=== PATIENT | male | born 1955 | race Caucasian/White ===

== ENCOUNTER 2022-03-20 03:42 | Day surgery (SDC) | payer BC, SELFPAY ==
[2022-03-12 08:26] VITALS: BMI 33.5
--- NOTE | 2022-03-12 08:38 | PC.NURSE ---
Report to the Outpatient Waiting Room, entrance under the green pavilion located off [facility], at time 1200 on date 03/20/22. OR Time: 1400. Time changes happen often and if your time is changed the preop area will call you the afternoon before. - You and your visitor will be asked to self-screen and do not enter if you have any COVID symptoms. - Only one visitor and NO children visitors are allowed at this time. - The patient visitor is requested to leave or wait in car when not with patient due to restrictions. - A mask is required within the hospital. Patients may have clear liquids (water, carbonated beverages, clear teas, apple juice) until 3 hours prior to surgery with a maximum of 20 ounces. - No food from midnight until time of surgery Take the following medications with a SIP of water the morning of surgery: PAIN PILL IF NEEDED Medications to discontinue per physician: CELEBREX Date to take last dose: PER DR. [place] Please no make-up, nail yoruba, hairspray, perfume, deodorant, or body powder the day of surgery. No jewelry (including any body piercings) or valuables the day of surgery, leave them at home. Please take a shower or bath the night before, or the morning of, surgery with an antibacterial soap. Wear comfortable, loose fitting clothing. - Jewelry must be removed prior to entering the operating room. Rings and piercings that are not removed may be cut off. - The hospital will not accept responsibility for valuables. - Please leave all valuables, including medications, at home the day of surgery. If you are going home after surgery, a licensed livery car driver must drive you home. - NO public transportation without another adult. - We recommend that an adult stay with you for 24 hours following discharge. - We also recommend that you do not drive, make important decision, drink alcoholic beverages, or take any drugs that were not prescribed by your health care provider for at least 24 hours after your discharge time. Follow any additional instructions given to you from your surgeon. If you or anyone in your household have experienced Covid symptoms in the past week, please notify your surgeon or the nurse liaison at the phone number below for possible testing. Telephone instructions given to PT AND SPOUSE and asked if any additional questions and then verbalized understanding. Patient advised to call surgeon office or pre surgery nurse liaison [phone] if any additional questions.
[2022-03-20] VITALS (9 sets, daily range): BP systolic 126–154; BP diastolic 52–93; PULSE 57–80; RESP 10–18; TEMP 35.8–36.3; O2SAT 92–99
--- NOTE | ~2022-03-20 | XR_ITS ---
EXAMINATION: XR fluoroscopy no charge DATE: 03/20/2022 15:13 INDICATION: L3-L5 laminectomy TECHNIQUE: Single lateral fluoroscopic image of the lower lumbar spine was obtained during procedure performed by Dr. Rivas. Radiologist was not present for the imaging or procedure. The amount of fl uoroscopy time used during this procedure was 0.1 minutes. COMPARISON: None. FINDINGS: Thin serpiginous wire-like densities likely representing lap sponge markers project over a metallic p robe in the soft tissue retractor position posterior to the lower lumbar spine. Moderate lower lumbar spondylosis with moderate disc height loss at L3-L4. IMPRESSION: 1. Fluoroscopy utilized during surgical procedure at the lower lumbar spine. See procedure note for f urther detail. Reviewed, dictated and finalized at location B. IMPRESSION: 1. Fluoroscopy utilized during surgical procedure at the lower lumbar spine. Se e procedure note for further detail.
[2022-03-20] MEDS: LACTATED RINGERS 1,000 ML 30 ML IV CONT ×2 (11:03→15:16)
--- NOTE | 2022-03-20 12:33 | WPDANESEPPF ---
Anes - Initial Pre Proc Eval Procedure: Operation Date: 03/20/22 12:30 Proposed Procedures p L3-5 Laminectomy - Lauro Rivas MD Date/Time: 03/20/22 12:33 Surgeon: Lauro Rivas MD Pre Op Diagnosis: L3-5 stenosis with claudication Patient Data Age: 67 Gender: M Height: 1.83 m Weight: 115.5 kg Last Vital Signs Temp 36.3 C L 03/20/22 10:23 Pulse 58 L 03/20/22 10:23 Resp 18 03/20/22 10:23 BP 138/52 L 03/20/22 10:23 Pulse Ox 96 03/20/22 10:23 O2 Del Method Room Air 03/20/22 10:23 Allergies Allergy/AdvReac Type Severity Reaction Status Date / Time No Known Allergies Allergy Unverified 03/12/22 08:24 Home Medications Medication Instructions Recorded Confirmed Type celecoxib 200 mg capsule (Celebrex) 200 mg PO DAILY 12/30/21 03/12/22 History olmesartan 20 mg tablet (Benicar) 20 mg PO DAILY 12/30/21 03/12/22 History rosuvastatin 10 mg tablet (Crestor) 10 mg PO DAILY 12/30/21 03/12/22 History tadalafil 5 mg tablet 5 mg PO DAILY 12/30/21 03/12/22 History hydrocodone 5 mg-acetaminophen 325 1 tablet PO Q4H PRN pain #30 tabs 02/17/22 03/12/22 Rx mg tablet Laboratory Tests 03/20/22 10:57 Blood Type O Positive Antibody Screen Negative Patient hx anesthesia problems: none Family hx anesthesia problems: none Results Review: All pre-operative results and documents have been reviewed as part of the pre-operative evaluation. [facility] Past Medical History Medical History Acute arthritis Anxiety Chronic pain syndrome Hypercholesteremia Hypertension Surgical History Surgical History H/O vasectomy Hx of tonsillectomy Family History Family History Other Breast cancer Diabetes mellitus Heart disease Hypertension Social History Social History Smoking status: Never smoker Alcohol intake: current Alcohol use details: 8/MONTH Substance use: never Substance use type: does not use Living arrangements: with family Spiritual care concerns: No Anes - Eval Final PreProcedure Day of Procedure 03/20/22 12:33 Patient weight: obese Heart: regular rate and rhythm Lungs: clear to auscultation Airway: Mallampati scale class II Neurological: alert and oriented Last oral intake: >/= 8 hours ASA classification: III Emergent: no Anesthetic plan: proceed Anesthesia type and monitoring: general ETT and standard monitoring Results Review: All pre-operative results and documents have been reviewed as part of the pre-operative evaluation. Informed Consent: The patient's anesthetic plan and its attendant risks and benefits were discussed with the patient/family/POA. Questions were solicited and answers provided to the satisfaction of the patient/family/POA.
--- NOTE | 2022-03-20 12:39 | PM.IMHP ---
H&P: HPI History of Present Illness Date/Time: 03/20/22 12:39 Chief Complaint: Neurogenic claudication Narrative: Gabriel is a 67-year-old gentleman with neurogenic claudication secondary to spinal stenosis who presents for laminectomy at L3-5. Nothing has changed since we last saw him. He is not having any bowel or bladder difficulty or other constitutional problems. He does not have specific muscle group weakness or dermatomal numbness. Review of Systems Review of Systems: Patient denies shortness of breath, cough, fever, chills, nausea, vomiting, weight loss, weight gain, chest pain, dysuria. He has back and leg pain and claudication as above. His review of systems is otherwise negative on 12 systems except as noted elsewhere. [facility] Past Medical History Medical History Acute arthritis Anxiety Chronic pain syndrome Hypercholesteremia Hypertension Surgical History Surgical History H/O vasectomy Hx of tonsillectomy Family History Family History Other Breast cancer Diabetes mellitus Heart disease Hypertension Social History Social History Smoking status: Never smoker Alcohol intake: current Alcohol use details: 8/MONTH Substance use: never Substance use type: does not use Living arrangements: with family Spiritual care concerns: No Meds Home Medications and Allergies Home Medications Medication Instructions Recorded Confirmed Type celecoxib 200 mg capsule (Celebrex) 200 mg PO DAILY 12/30/21 03/12/22 History olmesartan 20 mg tablet (Benicar) 20 mg PO DAILY 12/30/21 03/12/22 History rosuvastatin 10 mg tablet (Crestor) 10 mg PO DAILY 12/30/21 03/12/22 History tadalafil 5 mg tablet 5 mg PO DAILY 12/30/21 03/12/22 History hydrocodone 5 mg-acetaminophen 325 1 tablet PO Q4H PRN pain #30 tabs 02/17/22 03/12/22 Rx mg tablet Allergies Allergy/AdvReac Type Severity Reaction Status Date / Time No Known Allergies Allergy Unverified 03/12/22 08:24 Vital Signs Vital Signs - 24 hr 03/20/22 10:23 Temperature 97.3 F L Pulse Rate 58 L Respiratory Rate 18 Blood Pressure 138/52 L Pulse Oximetry 96 Oxygen Delivery Room Air Exam Neuro: Other: The patient is a normally developed, normal appearing male supine on the hospital bed in no acute distress. He is awake, alert, oriented, with good fund of knowledge, recall events and fluent speech. His face is symmetrical, his pupils are equal reactive to light and his extraocular movements are intact. Strength is 5/5 in all muscle groups of the bilateral lower extremities. Sensation is intact to light touch throughout the lower extremities. Assessment and Plan Assessment and plan (1) Lumbar spondylosis: Code(s): M47.816 - Spondylosis without myelopathy or radiculopathy, lumbar region Status: Acute (2) Lumbar stenosis: Code(s): M48.061 - Spinal stenosis, lumbar region without neurogenic claudication Status: Acute Plan Gabriel is a 67-year-old gentleman who presents for lumbar laminectomy for spinal stenosis at L3-5. I described to him that operation, its risks, potential benefits, the operative and postoperative course in detail and answered all his questions personally. Indicates understanding and elects proceed with that operation.
--- NOTE | 2022-03-20 12:41 | WPDHPUPDATE1 ---
History and Physical Update Update Date/Time: 03/20/22 12:41 History and Physical has been reviewed, including an updated exam of the patient. There are NO changes in the patient's condition. Risks, benefits, and alternatives have been discussed and questions answered. Patient agrees to proceed with procedure.
[2022-03-20] MEDS: ceFAZolin 2 GM/D5W 50 ML 2 GM/50 ML BAG IVPB (13:19)
--- NOTE | 2022-03-20 13:22 | PCCCNOTE ---
Lat entry: Requested by preop to meet with patient regarding advance directive. Meet with patient and his spouse Mari in room 10 preop. Patient wanting to complete advance directive today. Explained how to complete advance directive, also advised that he will be a full code all measures during surgery which patient understands. Patient completed paperwork, all signatures witnessed by myself for healthcare power or associate attorney and this hiv/aids care nurse and co-worker Marychuy Mccarthy for living will. Copy placed in chart and additional copy and hard copy given to patient.
[2022-03-20] MEDS: BUPIVACAINE/EPINEPHRINE 0.25% 50 ML VIAL INFILTRATE (14:07)
--- NOTE | 2022-03-20 15:01 | W.PM.PROC2 ---
Procedure Note - Detailed Date of Procedure 03/20/22 Pre-op Diagnosis L3-5 stenosis with claudication Post-op Diagnosis Same Procedure Performed L3-5 laminectomy Surgeon Lauro Rivas MD [employer] [facility] Anesthesia General Indications Gabriel is a 67-year-old gentleman with neurogenic claudication secondary to spinal stenosis who presents for laminectomy at L3-5. Description of Procedure The patient was brought to the operating room in the supine position, was sedated, intubated and placed under general anesthesia in routine fashion. He was then turned into the prone position on a Tyo frame. The of operation on his back was examined, marked for incision, prepped and draped in routine sterile fashion. Incision was marked over the L3 through 5 spinous processes in the midline. This area was injected with 0.5% lidocaine with 1 to [id number] epinephrine. Intravenous antibiotics given prior to incision. Incision was made with a 10 blade scalpel down to the lumbodorsal fascia. A subperiosteal dissection of the muscle soft tissue within spinous process lamina at L3-5 was performed with a subperiosteal elevator and Bovie cautery. A verifying x-rays obtained to verify the level of operation. The L3 and L4 spinous processes were removed with a Luz rongeur. Kerrison punches, curved curettes and a Leksell rongeur were used to remove lamina in the midline into the soft contents of the canal were encountered. Midas Diomedes drill with an a.m. 8 bit was used to widen the laminectomy. A curved curette was used to find a plane with during Kerrison punches were used to remove additional bone and ligament in the lateral recess 1st on the right side than on the left extending down until the L5-S1 foramen could be felt in the pedicles encountered. A dental instrument was placed in the lateral epidural space to confirm lack of compression. At the L4-5 level a Midas Diomedes drill was used to perform a limited bony foraminotomy on the right. Kerrison punches and curved curettes expanded the laminectomy until the nerve root was felt to be free. The wound was then copiously irrigated with bacitracin irrigation all bleeding stopped with bipolar and Bovie cautery and Gelfoam thrombin powder. Wound was then closed in layered fashion with 2-0 Vicryl interrupted sutures in the lumbodorsal fascia and Stan's layer. 3-0 Vicryl buried interrupted sutures were placed in the dermis and the skin was closed with running 4-0 Monocryl subcuticular stitch and dressed with Dermabond and a Telfa and Tegaderm dressing. A medium Hemovac drain was placed in a subfascial position buried out to the inferior right of the incision before closure. The patient was then allowed to wake up in the operating room was taken to the recovery room in stable condition. There were no immediate complications of this operation. All counts were reported correct in the case. Blood loss was 350 cc. The patient was neurologically at his baseline postoperatively.
[2022-03-20] MEDS: fentaNYL CITRATE INJ (*CRX) 100 MCG/2 ML VIAL 25 MCG IV PUSH ×6 (16:04→16:42)
--- NOTE | 2022-03-20 17:28 | ADMGEN ---
This patient, Gabriel Rm, was admitted to Medical Room 251-01. Patient/family oriented to hospital policies and general routines including ID bracelet, bed and alarms, visiting hours, pain management, procedures, bathroom and other care routines, personal items, smoking policy, room service/diet, and visiting hours. Information on how to activate the Rapid Response Team has been discussed. Patient/Family are encouraged to report perceived risks to care and to ask questions if they do not understand what they are told or what they should do.
[2022-03-20] MEDS: HYDROcodone/acetaminophen (*CRX) 10-325 MG TABLET 1 TAB PO ×2 (17:49→21:05)
[2022-03-20] MEDS: KCL 20 MEQ/D5/0.45% SOD CHL 1,000 ML 100 ML IV CONT (17:50)
[2022-03-20] MEDS: CYCLOBENZAPRINE HCL 10 MG TABLET PO (21:05)
[2022-03-20] MEDS: DOCUSATE SODIUM 100 MG CAPSULE PO (21:05)
[2022-03-21 00:35] VITALS: BP 126/51; PULSE 78; RESP 16; TEMP 36.2; O2SAT 93
[2022-03-21] MEDS: HYDROcodone/acetaminophen (*CRX) 10-325 MG TABLET 1 TAB PO ×4 (01:07→13:27)
[2022-03-21 06:23] VITALS: BP 113/51; PULSE 75; RESP 16; TEMP 36.4; O2SAT 94
[2022-03-21] MEDS: KCL 20 MEQ/D5/0.45% SOD CHL 1,000 ML 30 ML IV CONT (06:29)
[2022-03-21] MEDS: DOCUSATE SODIUM 100 MG CAPSULE PO (08:30)
[2022-03-21 10:06] VITALS: BP 112/53; PULSE 81; RESP 16; TEMP 36.7; O2SAT 95
--- NOTE | 2022-03-21 13:54 | WPDNEUROSGPN ---
Progress Note: A&P Assessment and Plan (1) Lumbar stenosis: Code(s): M48.061 - Spinal stenosis, lumbar region without neurogenic claudication Status: Acute Assessment and Plan: Glenny is doing very well s/p lumbar decompression Drain D/c'ed Voiding independently Anticipate d/c later today F/U in office with Dr. Rivas Subjective Date/time seen: 03/21/22 13:54 Patient notes resolution of lower extremity pain Ambulating well in halls No complaints Exam Narrative: Awake, alert oriented x 3 speech cF MERE EOMI Face= TML MAEW with good strength Objective Data Vital Signs Vital Signs: Vital Signs - 24 hr 03/20/22 15:20 03/20/22 15:35 03/20/22 15:50 Temperature 96.5 F L Pulse Rate 62 58 L 57 L Respiratory Rate 12 16 10 L Blood Pressure 133/75 154/86 H 150/93 H Pulse Oximetry 99 98 98 Oxygen Delivery Simple Face Mask Simple Face Mask Room Air Oxygen Flow Rate 8 8 03/20/22 16:05 03/20/22 16:20 03/20/22 16:35 Temperature Pulse Rate 57 L 65 57 L Respiratory Rate 12 18 13 Blood Pressure 134/71 141/67 H 135/68 Pulse Oximetry 97 96 92 Oxygen Delivery Room Air Room Air Room Air Oxygen Flow Rate 03/20/22 16:50 03/20/22 18:12 03/20/22 20:52 Temperature 97.1 F L Pulse Rate 57 L 80 Respiratory Rate 12 18 Blood Pressure 126/69 135/55 L Pulse Oximetry 95 97 Oxygen Delivery Room Air Room Air Oxygen Flow Rate 03/20/22 20:00 03/21/22 00:35 03/21/22 06:23 Temperature 97.1 F L 97.5 F L Pulse Rate 78 75 Respiratory Rate 16 16 Blood Pressure 126/51 L 113/51 L Pulse Oximetry 93 94 Oxygen Delivery Room Air Oxygen Flow Rate 03/21/22 09:15 03/21/22 09:35 03/21/22 10:06 Temperature 98.1 F Pulse Rate 81 Respiratory Rate 16 Blood Pressure 112/53 L Pulse Oximetry 95 Oxygen Delivery Room Air Room Air Oxygen Flow Rate Intake/Output Intake/Output: Intake & Output 03/18/22 03/19/22 03/20/22 03/21/22 23:59 23:59 23:59 23:59 Intake Total 1900 1512 Output Total 50 100 Balance 1850 1412 Meds/Results Medications: Active Medications Generic Name Dose Route Start Last Admin Trade Name Freq PRN Reason Stop Dose Admin Hydrocodone Bitart/Acetaminophen 1 tab 03/20/22 15:05 Hydrocodone/Acetaminophen (*Crx) 5-325 Mg Tablet PO Q4H PRN Mild Pain (1-3) Hydrocodone Bitart/Acetaminophen 1 tab 03/20/22 15:05 03/21/22 13:27 Hydrocodone/Acetaminophen (*Crx) 10-325 Mg Tablet PO 1 tab Q4H PRN Administration Moderate Pain (4-6) Al Hydrox/Mg Hydrox/Simethicone 20 ml 03/20/22 15:05 Mag Hydrox/Al Hydrox/Simeth 30 Ml Udc PO Q4H PRN Indigestion/Heartburn Bisacodyl 10 mg 03/20/22 15:05 Bisacodyl 10 Mg Suppository RECTAL DAILY PRN Constipation Cyclobenzaprine HCl 10 mg 03/20/22 15:05 03/20/22 21:05 Cyclobenzaprine Hcl 10 Mg Tablet PO 10 mg TID PRN Administration Muscle Spasms Docusate Sodium 100 mg 03/20/22 21:00 03/21/22 08:30 Docusate Sodium 100 Mg Capsule PO 100 mg Q12HR MARY Administration Cefazolin Sodium 1 gm in 50 mls @ 100 mls/hr 03/20/22 22:00 03/21/22 13:27 Ancef 1 Gm/D5w 50 Ml Pm IVPB 100 mls/hr Q8HR MARY Administration Potassium Chloride/Dextrose/Sod Cl 1,000 mls @ 30 mls/hr 03/20/22 15:05 03/21/22 06:29 Kcl 20 Meq/D5/0.45% Sod Chl IV CONT 30 mls/hr .Q24H MARY Administration Morphine Sulfate 2 mg 03/20/22 15:05 Morphine Sulfate (*Crx) 2 Mg/Ml Inj IV PUSH Q2H PRN Pain Rated 7-10 Ondansetron HCl 4 mg 03/20/22 15:05 Ondansetron Inj 4 Mg/2 Ml Vial IV PUSH Q8H PRN Nausea And Vomiting Senna/Docusate Sodium 1 tab 03/20/22 15:05 Senna/Docusate Sodium Tablet PO HS PRN Constipation Radiology Results: ITS Impressions Fluoroscopy 03/20/22 15:32 IMPRESSION: 1. Fluoroscopy utilized during surgical procedure at the lower lumbar spine. See procedure note for further detail
--- NOTE | 2022-04-28 09:46 | P.DS_ITS ---
DS: Admitting Diagnosis Discharge Date 03/21/22 Admitting Diagnosis L3-5 stenosis DS: Discharge Diagnosis Discharge Diagnosis Plan Gabriel is a 67-year-old gentleman with neurogenic claudication secondary to spinal stenosis at L3-5 presents for laminectomy DS: Summary Hospital Course Hospital Course: Gabriel was taken to the operating room on 03/20/2022 with the aforementioned operation was performed without complication. His drain was removed on postoperative day 1. Physical and occupational therapy were involved in his care. Later on postoperative day 1 he was eating, ambulating and his pain was under control with by mouth pain medicine. His wounds remained clean, dry and intact. He was afebrile stable vital signs. He was therefore allowed to be discharged L. Time Spent with Patient Time attestation: Total time spent providing and/or coordinating discharge services: Discharge Plan Discharge Patient Disposition: Home, Self-Care Stand Alone Forms: General Discharge Instructions Follow-up/Referrals: Magali Morales MD [Physician] - Lauro Shipman MD [Physician] - (Folow up with Dr. Shipman - call office t o schedule) Discharge Medications: Continued olmesartan [Benicar] 20 mg tablet 20 mg PO DAILY celecoxib [Celebrex] 200 mg capsule 200 mg PO DAILY rosuvastatin [Crestor] 10 mg tablet 10 mg PO DAILY tadalafil 5 mg tablet 5 mg PO DAILY No Action hydrocodone-acetaminophen 5-325 mg tablet 1 tablet PO Q4H PRN (Reason: pain) Qty: 30 0RF
== END 2022-03-21 15:00 | disposition home or self-care (01) ==
LOC: ANHSURGERY 10:08 → ANH2MED 17:10
PROVIDERS: PCP Internal Medicine; Visit Provider Neurological Surgery
PROC: (CPT 63005; principal; 2022-03-20 12:30)
DX: M48.062 Spinal stenosis, lumbar region with neurogenic claudication (principal); M47.816 Spondylosis without myelopathy or radiculopathy, lumbar region; F41.9 Anxiety disorder, unspecified; E78.00 Pure hypercholesterolemia, unspecified; I10 Essential (primary) hypertension; M19.90 Unspecified osteoarthritis, unspecified site; E66.9 Obesity, unspecified; Z68.34 Body mass index [BMI] 34.0-34.9, adult; G89.4 Chronic pain syndrome
CPT/HCPCS: 63047; 63048; 36415; 86850; 86900; 86901; 97161; 97165; 99199; A9270; J0131; J0330; J0690; J1100; J1170; J2250; J2370; J2405; J2704; J3010; J3480; J7120

== ENCOUNTER 2025-02-16 12:03 | Outpatient (CLI) | payer MEDICARE, SELFPAY ==
--- NOTE | 2025-02-16 13:02 | ECG_ITS ---
Test Date: 2025-02-16 13:20:14 Measurements Intervals Varney Rate: 54 P: 29 UT: 215 QRS: -49 QRSD: 159 T: 54 QT: 474 QTc: 450 Interpretive Statements SINUS BRADYCARDIA WITH FIRST DEGREE AV BLOCK MARKED LEFT AXIS DEVIATION [QRS AXIS < -30] LEFT BUNDLE BRANCH BLOCK [120+ ms QRS DURATION, 80+ ms Q/S IN V1/V2, 85+ ms R IN I/aVL/V5/V6] No previous ECG available for comparison Electronically Signed On 02-16-2025 13:29:21 CDT by Nadeem Mar M.D.
--- OUTSIDE RECORDS SUMMARY | 2025-02-16 13:58 | XMS_ITS | Clinical Summary ---
Author Organization [facility] Address [address] [place] [address] Phone Care Team Providers Care Manager Brand Name Role Phone Richard Turner MD Primary Care Provider [phone] César Mackey MD Unavailable [phone] Afshin GONZALEZ MD, Raj Whatley Unavailable [phone] Margarita Smallwood MD Unavailable [phone] Allergies No known active allergies Medications olmesartan (BENICAR) 20 mg tablet Take 1 tablet (20 mg total) by mouth daily Active celecoxib (CeleBREX) 100 mg capsule Take 1 capsule (100 mg total) by mouth 2 (two) times a day Active tadalafiL (CIALIS) 5 mg tablet Take 1 tablet (5 mg total) by mouth daily Active rosuvastatin (CRESTOR) 5 mg tablet Take 1 tablet (5 mg total) by mouth daily Active aspirin 81 mg enteric coated tablet Take 1 tablet (81 mg total) by mouth daily 10/10/2022 Active nitroglycerin (NITROSTAT) 0.[address] 1 tablet (0.4 mg total) under the tongue every 5 (five) minutes as needed 10/27/2022 Active pilocarpine (SALAGEN) 5 mg tabletIndicatio ns:Xerostomia Take 1 tablet (5 mg total) by mouth 3 (three) times a day 90 tablet 5 08/30/2024 Active Active Problems Problem Noted Date Diagnosed Date Acute recurrent maxillary sinusitis 08/30/2024 Pharyngoesophageal dysphagia 08/11/2023 Wheezing 11/13/2022 Assessment & Plan (01/12/2023 1:46 PM CDT): The patient states that his breathing is back to normal after recovering from bronchitis. The patient states he is not used his Breztri or albuterol in a long time. Assessment & Plan (11/13/2022 10:34 AM CDT): The patient presents with a 2 month history of intermittent wheezing associated with shortness of breath, cough which has been productive at times of yellow/green phlegm. I will give him a Z-Jason, check a chest x-ray and full PFTs and he will follow-up with me in 1 month. Did recommend that he continue with the breztri and albuterol for now. 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 Immunizations Immunization Administration Dates Next Due Influenza, Quadrivalent, Spl it, Preservative Free, Intramuscular 03/14/2019 Moderna SARS-CoV-2 Monovalent Vaccination (12+ Y RS) 08/16/2020,07/19/2020 ZOSTER Recombinant 01/11/2019,10/25/2018 Surgical History Surgery Date Site/Laterality Comments ADENOIDECTOMY TONSILLECTOMY BIOPSY 03/26/2017 Left excision left tonsil and left FNA neck mass REPLACEMENT TOTAL KNEE Right CERVICAL LAMINECTOMY 03/20/2022 Medical History Medical History Date Comments Neck mass Hypertension Cancer (HCC) Tonsil Kidney stone Family History Medical History Relation Name Comments Cancer Brother Diabetes Brother Cancer Father Cancer Mother Hearing loss Other Relation Name Status Comments Brother Father Mother Other Social History Tobacco Use Types Packs/Day Years Used Date Smoking Tobacco: Never Smokeless Tobacco: Never Tobacco Cessation:Counseling Given: Not Answered Alcohol Use Standard Drinks/Week Comments Yes 0 (1 standard drink = 0.6 oz pur e alcohol) AUDIT-C Answer Date Recorded Q1: How often do you have a drink containing alc ohol? 2-3 times a week 11/13/2022 Q2: How many drinks containi ng alcohol do you have on a typical day when you are drinking? 1 or 2 11/13/2022 Q3: How often do you have si x or more drinks on one occasion? 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 Not on file Not on file Obstetrics History Last Filed Vital Signs Vital Sign Reading Time Taken Comments Blood Pressure 124/60 01/12/2023 1:15 PM CDT Pulse 57 01/12/2023 1:15 PM CDT Temperature 36.8 C (98.2 F) 08/11/2023 12:01 PM ACDS BLOCK 1 OPERATOR Respiratory Rate 18 08/30/2024 10:27 AM CDT Oxygen Saturation 97% 01/12/2023 1:15 PM CDT Inhaled Oxygen Concentration - - Weight 107 kg (236 lb) 08/30/2024 10:27 AM CDT Height 182.9 cm (6') 08/30/2024 10:27 AM CDT Body Mass Index 32.01 08/30/2024 10:27 AM CDT Plan of Treatment Health Maintenance Due Date Last Done Comments Colon Cancer Screening-Colonoscopy 1957 Depression Screening 1957 Fall Risk Assessment 1957 Hepatitis C Screening 1957 Hepatitis B Screening 1975 Prostate Cancer Screening-PSA 07/05/2014 07/05/2012 Well Visit 65+ 2022 Covid-19 Vaccine (6 - 2024-2 6 season) 2025 02/28/2022, 10/15/2021, 10/15/2021, Additional history exists Influenza Vaccine (#1) 2025 , 03/09/2023, 02/28/2022, Additional history exists DTaP/Tdap/Td Vaccine (2 - Td or Tdap) 12/26/2030 12/26/2020 Zoster Vaccine Completed 01/11/2019, 10/07, 09/23/2018 Pneumococcal vaccine 65+ Completed 02/29/2024, 11/2023 Procedures Procedure Name Priority Date/Time Associated Diagnosis Comments PSA SCREEN Routine 07/05/2012 8:50 AM ACDS BLOCK 1 OPERATOR from Last 3 Months or Most Recently Relevant to Health Maintenance Results * PSA screen (07/05/2012 8:50 AM ACDS BLOCK 1 OPERATOR) PSA Screen 1.5 0.0 - 3.9 ng/mL 07/05/2012 1:30 PM ACDS BLOCK [address] [facility] HISTORICAL RESULTS Comment: Method: ECLIA Values obtained by different assay methods cannot be used interchangeably. Use sequential testing to confirm baseline if assay method changed during patient monitoring. 07/05/2012 8:50 AM ACDS BLOCK 1 OPERATOR 07/05/2012 12:39 PM ACDS BLOCK 1 OPERATOR Alex You MD LAB BLOOD ORDERABLES Final Result Performing Organization Address City/State/[facility] [[email or web address]] Co de Phone Number [facility] HISTORICAL RESULTS from Last 3 Months or Most Recently Relevant to Health Maintenance Insurance [facility] MEDICARE ADVANTAGE [facility] MEDICARE ADVANTAGE AET MEDICARE GOLD Care Teams Manager Brand Relationship Specialty Start Date End Date Richard Turner MD PCP - General 07/29/17 César Mackey MD Medical Oncologist/Platform Stapler Hematology and Oncology 01/19/18 Raj Pepe II, MD Surgeon Otolaryngology 01/21/18 Margarita Smallwood MD Radiation Oncologist Radiation Oncology 01/21/18
--- OUTSIDE RECORDS SUMMARY | 2025-02-16 13:58 | XMS_ITS | Patient Health Record ---
Author Organization [facility] Address [address] [place] [address] Care Team Providers Care Lidar Analyst Name Role Phone Anil Smith Primary Care Provider [phone] Reason For Referral No Information Immunizations Vaccine Route Administration Date Status Comme nts COVID-19 Moderna 1ST IM Intramuscular 07/19/2020 Administered EUA date 0. Screening reviewed and consent signed. Patient tolerated well. COVID-19 Moderna 2nd IM Intramuscular 08/16/2020 Administered EUA date 0. Screening reviewed and consent signed. Patient tolerated well. Plan Of Treatment No Information Insurance Providers Payer Name Payer Address Payer Phone Subscriber Number Group Number Insured Name Patient Relationship to Insured Coverage Start Date Coverage End Date [facility] [address] [place] [address] [phone] [id number] Gabriel Rm Self - patient is the insured 1
[2025-02-16 14:22] LABS: Hematocrit 44.5 % (42.0-52.0); Hemoglobin 14.1 g/dL (14.0-18.0); Mean Corpuscular HGB Conc 31.7 g/dl (32-36); Mean Corpuscular Hemoglobin 31.4 pg (26-34); Mean Corpuscular Volume 99.1 fl (80-100); Platelet Count Result 177 k/mm3 (150-375); Red Blood Count 4.49 M/mm3 (4.6-6.20); White Blood Count 6.4 K/mm3 (4.5-10.0)
[2025-02-16 14:24] LABS: Add Urine Microscopic? NO; Appearance Urine Clear (Clear); Glucose Urine UA Negative (Negative); Leukocyte Esterase Ur Negative LEU/UL (Negative); Nitrate Urine Negative (Negative); Specific Grav Ur 1.024 (1.001-1.035)
[2025-02-16 14:32] LABS: Anion Gap 8 mmol/L (4-12); Blood Urea Nitrogen 19 mg/dL (9-20); Calcium 9.4 mg/dL (8.4-10.2); Carbon Dioxide 27 mmol/L (22-30); Chloride 104 mmol/L (98-107); Estimated Glomerular Filt Rate > 60; Glucose 95 mg/dL (65-110); Potassium 4.6 mmol/L (3.4-5.0); Sodium 139 mmol/L (137-145)
[2025-02-16 14:41] LABS: INR 1.0; Prothrombin Time 13.1 Seconds (11.1-14.7)
[2025-02-16 14:42] LABS: Partial Thromboplastin Time 31.3 Seconds (22.3-36.8)
== END 2025-02-16 12:04 | disposition home or self-care (01) ==
LOC: ANHSURGERY 12:07
PROVIDERS: PCP Internal Medicine; Visit Provider Neurological Surgery
DX: Z01.818 Encounter for other preprocedural examination (principal); M51.26 Other intervertebral disc displacement, lumbar region; I44.7 Left bundle-branch block, unspecified; R94.31 Abnormal electrocardiogram [ECG] [EKG]
CPT/HCPCS: 36415; 80048; 81003; 85027; 85610; 85730; 93005

== ENCOUNTER 2025-03-07 01:42 | Day surgery (SDC) | payer MEDICARE, SELFPAY ==
--- OUTSIDE RECORDS SUMMARY | 2025-01-30 19:00 | XMS_ITS | Continuity of Care Document ---
Author Organization [employer] [place] Address [address] [place] [address] Phone Care Team Providers Care Clinical Data Programmer Name Role Phone Richard Turner MD Unavailable Unavailable Allergies, Adverse Reactions, Alerts Substance Reaction Status Criticality No Known Allergies Active No Inform ation Medications Medication Instructions Dosage Effective Dates (start - stop) Status Comments TRAZODONE 50 MG TABLET TAKE 1 TABLET BY MOUTH EVERY DAY AT NIGHT - Active OLMESARTAN TAB 20MG TAKE 1 TABLET DAILY - Active Cialis 5 mg tablet take 1 tablet by oral route every day 5 MG - Active Crestor 10 mg tablet take 1 tablet by oral route every day 10 MG - Active Celebrex 200 mg capsule TAKE 1 CAPSULE BY MOUTH TWICE DAILY NEEDED - Active Cialis 20 mg tablet TAKE ONE TABLET BY MOUTH APPROXIMATELY ONE HOUR BEFORE SEXUAL ACTIVITY. DO NOT USE MORE THAN ONE DOSE DAILY - Active tramadol 50 mg tablet take 1 tablet by oral route every 6 hours as needed 50 MG - Active VESICARE LS (unknown strength) take 5 milliliter by oral route every day Not Available - Active Ozempic 1 mg/dose (4 mg/3 mL) subcutaneous pen injector inject (1MG) by subcutaneous route every week on the same day of each week 1 MG - Active Procedures Procedure Date MED LIST DOCD IN RD OFFICE [id number] SYST BP LT 130 MM HG DIAST BP < 80 MM HG ROUTINE VENIPUNCTURE [place] BASIC METABOLIC PANEL(BMP) CBC, INC PLATELETS AND DIFFERENTIAL MED LIST DOCD IN RCRD OFFICE QBPBP-ALL-KEYKENKE SYST BP LT 130 MM HG DIAST BP < 80 MM HG OFFICE NKUYX-TKG-IBPPZZTV SYST BP LT 130 MM HG DIAST BP < 80 MM HG PNEUMOVAX ADM MEDICARE Pneumococcal Conjugate Vaccine (PCV20) A OFFICE ROHZI-JPV-LOCUSERE SYST BP >= 140 MM HG6 IT DIAST BP < 80 MM HG COMPREHEN METABOLIC PANEL CMP LIPID PANEL PSA, TOTAL, SCREENING MEDICARE ONLY OFFICE CYNZC-MDZ-EDQHYTCL ROUTINE VENIPUNCTURE IL Pt inelig neg scrn depres FALL RISK ASSESSMENT DOC'D PRES/ABSN URINE INCON ASSESS BODY MASS INDEX DOCD SYST BP LT 130 MM HG DIAST BP < 80 MM HG OFFICE XWINS-BVK-DXMPPMTT CBC, INC PLATELETS AND DIFFERENTIAL Pt inelig neg scrn depres FALL RISK ASSESSMENT DOC'D PRES/ABSN URINE INCON ASSESS PREVENTATIVE-EST: 65 & OVER BODY MASS INDEX DOCD SYST BP LT 130 MM HG DIAST BP < 80 MM HG ROUTINE VENIPUNCTURE IL SPIROMETRY BEFORE & AFTER BRONCHODIALATO R CBC, INC PLATELETS AND DIFFERENTIAL COMPREHEN METABOLIC PANEL CMP LIPID PANEL PSA, TOTAL, SCREENING MEDICARE ONLY FALL RISK ASSESSMENT DOC'D PRES/ABSN URINE INCON ASSESS Transitional Care- First 7 Days Of Disch arge BODY MASS INDEX DOCD SYST BP GE 130 - 139MM HG DIAST BP < 80 MM HG ROUTINE VENIPUNCTURE IL Kept Appointment No Charge Encounter Jun OFFICE FJXTR-UEJ-DCSOOSHP SYST BP LT 130 MM HG DIAST BP < 80 MM HG BASIC METABOLIC PANEL(BMP) ROUTINE VENIPUNCTURE OFFICE ULJDN-BCX-KVAEDNZV SYST BP >= 140 MM HG6 IT DIAST BP < 80 MM HG NUTRITIONAL THERAPY; INITIAL ASSESSMENT AND INTERVENTION, INDIVIDUAL, EACH 15 WI BODY MASS INDEX DOCD Pt inelig neg scrn fozia PREVENTATIVE-EST: 40-64 BODY MASS INDEX DOCD SYST BP GE 130 - 139MM HG DIAST BP < 80 MM HG COVID-19, Amplified Probe Technique Pt inelig neg scrn fozia OFFICE DLVGO-DDE-TEQRHUDE BODY MASS INDEX DOCD SYST BP GE 130 - 139MM HG DIAST BP < 80 MM HG IMMUN ADMIN (INC PERCUTANEOUS) SINGLE, F IRST INJ TDAP INTRAMUSCULAR USE DSCHRG MED/CURRENT MED MERGE Pt inelig neg scrn fozia Transitional Care- 14 Days Of Discharge BODY MASS INDEX DOCD SYST BP >= 140 MM HG6 IT DIAST BP < 80 MM HG Pt inelig neg scrn depres PREVENTATIVE-EST: 40-64 BODY MASS INDEX DOCD SYST BP GE 130 - 139MM HG DIAST BP < 80 MM HG COVID-19, Amplified Probe Technique INFLUENZA, RAPID INFLUENZA B, RAPID - OFFICE LAB 020 PULSE OXIMETRY, SINGLE OFFICE QYTPK-IPB-GOJORJQZ BODY MASS INDEX DOCD SYST BP >= 140 MM HG6 IT DIAST BP < 80 MM HG OFFICE TKGSC-BEX-YAKRULNF BODY MASS INDEX DOCD SYST BP GE 130 - 139MM HG DIAST BP < 80 MM HG Pt inelig neg scrn depres OFFICE ASSEG-SER-FCVMHENP BODY MASS INDEX DOCD SYST BP >= 140 MM HG6 IT DIAST BP < 80 MM HG Pt inelig neg scrn depres OFFICE ZRXIE-BWK-ITBQSAWT BODY MASS INDEX DOCD SYST BP >= 140 MM HG6 IT DIAST BP < 80 MM HG Pt inelig neg scrn depres PREVENTATIVE-EST: 40-64 BODY MASS INDEX DOCD SYST BP LT 130 MM HG DIAST BP < 80 MM HG Advance Directives Directive Yes / No Effective Date File Name No Information Encounters Encounter Description Practice Location Reason(s) For Visit Diagnoses Date Provider Providers Copied on Encounter [facility] [place], [address], [place], [place], [address] , [place] tel:[phone] [facility] [facility] [facility] No Information 5 English Ramos. [address] [place], [place], [address], [place]. tel:[phone] Referring Provider: Richard Turner, [address] [place], [address] . tel:[phone] [facility] [place], [address], [place], [place], [address] , [place] tel: [phone] [facility] [place] No Information 5 Richard. [address] [place], [place], [address], [place]. tel:[phone] [facility] [place], [address], [place], [place], [address] , [place] tel: [phone] [facility] No Information 5 English Ramos. [address] [place], [place], [address], [place]. tel:[phone] OFFICE IWFTH-DBH-RBA KALLI [facility] [place], [address], [place], [place], [address] , tel: [phone] [facility] chronic problems (chief complaint) Body mass index [BMI] 31.0-31.9, adultEssential (primary) hypertensionLeft leg claudicationCoro nary artery disease involving morongo heart with angina pectoris, unspecified vessel or lesion type 5 English Ramos. [address] [place], [address], [place]. tel:[phone] Referring Provider: [place], [address] . tel:[phone] [facility], [address], [place], [place], [address] , [place] tel: [phone] [facility] No Information 5 Radha Bazan. [address], [id number], [place]. tel:[phone] Referring Provider: [place], [address] . tel:[phone] OFFICE UPUOL-CLK-GCE ANDED [facility] [place], [address], [place], [place], [address] , tel: [phone] [facility] leg pain (chief complaint) Body mass index [BMI] 31.0-31.9, adultLeft leg claudication 5 English Ramos. [address] [place], [address], [place]. tel:[phone] Referring Provider: Richard Turner, [address] [place], [address] . tel:[phone] [facility] [place], [address], [place], [place], [address] , tel: [phone] [facility] No Information 5 English Ramos. [address] [place], [place], [address], [place]. tel:[phone] [facility] [place], [address], [place], [place], [address] , tel: [phone] [facility] No Information 5 English Ramos. [place], [address], [place]. tel:[phone] OFFICE RQFVK-KEU-EFJ KALLI [facility] [place], [address], [place], [place], [address] , [place] tel: [phone] [facility] px (chief complaint) Body mass index [BMI] 33.0-33.9, adultEssential (primary) hypertensionMixe d hyperlipidemiaUr inary urgency 4 English Ramos. [address] [place], [address], [place]. tel:[phone] Referring Provider: [place], [address] . tel:[phone] [facility] [facility] [place], [address], [place], [place], [address] , [place] tel: [phone] [facility] [facility] No Information 4 English Ramos. [address] [place], [address], [place]. tel:[phone] [facility] [place], [address], [place], [place], [address] , tel: [phone] [facility] Prostate cancer screeningEssenti al (primary) hypertensionMixe d hyperlipidemia Oct- 4 English Ramos. [address] [place], [place], [address], [place]. tel:[phone] [facility], [address], [place], [place], [address] , [place] tel: [phone] [facility] No Information Feb- 4 English Ramos. [address] [place], [place], [address], [place]. tel:[phone] [facility], [address], [place], [place], [address] , [place] tel: [phone] [facility] Left leg pain 4 Genia Botello. [address] [place], [place], [address], [place]. tel:[phone] OFFICE BYHBK-DWA-YFN KALLI [facility], [address], [place], [place], [address] , [place] tel: [phone] [facility] left leg pain (chief complaint) Left leg pain 4 Genia Botello. [address] [place], [place], [address], [place]. tel:[phone] Referring Provider: Richard Turner, [address] [place], [address] . tel:[phone] [facility], [address], [place], [place], [address] , [place] tel: [phone] [facility] No Information Nov- 4 Radha Bazan. [address], [address], [place]. tel:[phone] Referring Provider: Richard Turner, [address] [place], [address] . tel:[phone] OFFICE EASAI-CNT-BHH KALLI [facility], [address], [place], [place], [address] , [place] tel: [phone] [facility] chronic conditon (chief complaint) Essential (primary) hypertensionGERD without esophagitisMixed hyperlipidemiaBo dy mass index [BMI] 31.0-31.9, adultUrinary urgency 4 English Ramos. [address] [place], [place], [address], . tel:[phone] Referring Provider: Richard Turner, [address] [place], [address] . tel:[phone] [facility], [address], [place], [place], [address] , tel: [phone] [facility] Essential (primary) hypertensionMixe d hyperlipidemiaPr ostate cancer screening 4 English Ramos. [address] [place], [place], [address], . tel:[phone] OFFICE HIARC-UQV-JCI KALLI [facility], [address], [place], [place], [address] , tel: [phone] [facility] px (chief complaint) Body mass index [BMI] 31.0-31.9, adultAnnual physical examEssential (primary) hypertensionCoro nary artery disease involving morongo heart with angina pectoris, unspecified vessel or lesion typeBronchitis 3 English Ramos. [address] [place], [address], [place]. tel:[phone] Referring Provider: Richard Turner, [place], [address] . tel:[phone] [facility], [address], [place], [place], [address] , tel: [phone] [facility] No Information 3 English Ramos. [address] [place], [address], [place]. tel:[phone] [facility], [address], [place], [place], [address] , tel: [phone] [facility] No Information 3 English Ramos. [address] [place], [place], [address], [place]. tel:[phone] [facility], [address], [place], [place], [address] , [place] tel: [phone] [facility] No Information 3 Radha Bazan. [address] [facility], [address], [address], [place]. tel:[phone] Referring Provider: Richard Turner, [address] [place], [address] . tel:[phone] PREVENTATIVE- EST: 65 & OVER [facility] [place], [address], [place], [place], [address] , [place] tel: [phone] [facility] px (chief complaint) Body mass index [BMI] 32.0-32.9, adultAnnual physical exam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, unspecified vessel or lesion typeEssential (primary) hypertensionShor tness of breathMixed hyperlipidemia 3 English Ramos. [address] [place], [place], [address], [place]. tel:[phone] Referring Provider: Richard Turner, [place], [address] . tel:[phone] [facility] [facility] [place], [address], [place], [place], [address] , [place] tel:[phone] [facility] bronchitis (chief complaint) Bronchitis 3 English Ramos. [address] [place], [place], [address], [place]. tel:[phone] Referring Provider: [place], [address] . tel:[phone] [facility], [address], [place], [place], [address] , [place] tel:[phone] [facility] No Information 3 Radha Chewn. [address] [facility], [address] [address], [place], [place], [address], [place]. tel:[phone] Referring Provider: [place], [address] . tel:[phone] Transitional Care- First 7 Days Of Discharge [facility], [address], [place], [place], [address] , tel: [phone] [facility] PX (chief complaint) 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, unspecified vessel or lesion typeBronchitisEs sential (primary) hypertension 3 English Ramos. [address] [place], [address], [place]. tel:[phone] Referring Provider: [place], [address] . tel:[phone] [facility], [address], [place], [place], [address] , [place] tel: [phone] [facility] Renal stone 3 English Ramos. [address] [place], [address], [place]. tel:[phone] OFFICE ZPZNT-JRP-JZL KALLI [facility], [address], [place], [place], [address] , [place] tel: [phone] [facility] Patient encounter (chief complaint) Essential (primary) hypertensionSpin al stenosis of lumbar region, unspecified whether neurogenic claudication presentMixed hyperlipidemia 2 English Ramos. [address] [place], [place], [address], [place]. tel:[phone] Referring Provider: [place], [address] . tel:[phone] OFFICE PBPPT-EWW-BKR ANDED [facility], [address], [place], [place], [address] , [place] tel: [phone] [facility] Knee pain (chief complaint) Acute pain of left knee 2 English Ramos. [address] [place], [address], [place]. tel:[phone] Referring Provider: [place], [address] . tel:[phone] [facility] [address], [place], [place], [address] , [place] tel: [phone] [facility] Left knee pain, unspecified chronicity 2 English Ramos. [address] [place], [place], [address], [place]. tel:[phone] [facility] [address], [place], [place], [address] , [place] tel: [phone] [facility] [facility] Complete Care Dietary counseling and surveillanceBody mass index [BMI] 35.0-35.9, adult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, unspecified vessel or lesion typeBody mass index [BMI] 34.0-34.9, adult 2 Maricel Horne. [address] [facility], 4th Floor, [place], [place], [address], [place]. tel:[phone] Referring Provider: Coleen Connelly, [facility] 4th Floor, [place], [address] . tel:[phone] [facility] [address], [place], [place], [address] , [place] tel: [phone] [facility] No Information 2 English Ramos. [address] [place], [place], [address], [place]. tel:[phone] [facility] [address], [place], [place], [address] , [place] tel: [phone] [facility] Encounter for screening for malignant neoplasm of colon 2 English Ramos. [address] [place], [place], [address], [place]. tel:[phone] PREVENTATIVE- EST: 40-64 [facility] [address], [place], [place], [address] , tel: [phone] [facility] px (chief complaint) Body mass index [BMI] 35.0-35.9, adultAnnual physical examEssential hypertensionLow testosteroneSpin al stenosis of lumbar region, unspecified whether neurogenic claudication presentHand arthritis 2 Richard. [address] [place], [address], [place]. tel:[phone] Referring Provider: [place], [address] . tel:[phone] [facility] [address], [place], [place], [address] , tel:[phone] [facility] Essential hypertensionBeni gn prostatic hyperplasia, unspecified whether lower urinary tract symptoms presentScreening for lipoid disordersAnnual physical examErectile dysfunction, unspecified erectile dysfunction type 2 English Ramos. [address] [place], [address], [place]. tel:[phone] [facility] [address], [place], [place], [address] , tel:[phone] [facility] Exposure to COVID-19 virus 2 English Ramos. [place], [address], [place]. tel:[phone] Referring Provider: [place], [address] . tel:[phone] [facility] [address], [place], [place], [address] , tel:[phone] [facility] No Information 2 English Ramos. [place], [address], [place]. tel:[phone] OFFICE ATYIC-AMZ-GXQ KALLI [facility], [address], [place], [place], [address] , tel:[phone] [facility] chronic conditions (chief complaint) Essential (primary) hypertensionCoro nary artery disease involving morongo heart with angina pectoris, unspecified vessel or lesion typeBody mass index (BMI) 35.0-35.9, adult Oct- 1 English Ramos. [address] [place], [address], [place]. tel:[phone] Referring Provider: [place], [address] . tel:[phone] [facility], [address], [place], [place], [address] , tel: [phone] [facility] No Information 1 English Ramos. [address] [place], [place], [address], . tel:[phone] Referring Provider: [place], [address] . [phone] Transitional Care- 14 Days Of Discharge [facility], [address], [place], [place], [address] , tel: [phone] [facility] followup (chief complaint) Cellulitis of left forearmBody mass index (BMI) 35.0-35.9, adultEssential (primary) hypertension 1 Genia Botello. [address] [place] [address], [address], . tel:[phone] Referring Provider: [place], [address] . tel:[phone] [facility], [address], [place], [place], [address] , tel: [phone] [facility] hosp f/u (chief complaint) Cellulitis of left forearm 1 Genia Botello. [address] [place] [address], [address], . tel:[phone] Referring Provider: Rosmery Cormier [address] [place] [address], [address] . tel:[phone] PREVENTATIVE- EST: 40-64 [facility], [address], [place], [place], [address] , tel: [phone] [facility] preventive exam (chief complaint)C hronic Conditions (chief complaint) Encounter for general adult medical examination without abnormal findings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, unspecified vessel or lesion typeGERD without esophagitisSquam ous cell carcinoma of head and neckEssential (primary) hypertensionBody mass index (BMI) 34.0-34.9, adultScreening for malignant neoplasm of prostate 1 Genia Botello. [address] [place], [place], [address], [place]. tel:[phone] Referring Provider: [place], [address] . tel:[phone] OFFICE BJVMH-ZBM-IEI ANDED [facility], [address], [place], [place], [address] , tel: [phone] [facility] acute visit (chief complaint) Acute intractable headache, unspecified headache typeBody achesBody mass index (BMI) 36.0-36.9, adult 0 English Ramos. [place], [address], [place]. tel:[phone] Referring Provider: [place], [address] . tel:[phone] OFFICE VWEFU-DRD-KST ANDED [facility], [address], [place], [place], [address] , tel: [phone] [facility] wants to discuss cardiac clearance workup (chief complaint) 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, unspecified vessel or lesion typeGERD without esophagitis 0 English Ramos. [address] [place], [place], [address], [place]. tel:[phone] Referring Provider: [place], [address] . tel:[phone] OFFICE NLGQX-EIX-CCV ANDED [facility], [address], [place], [place], [address] , [place] tel: [phone] [facility] right thumb swelling (chief complaint) Pain of right thumb 0 Genia Botello. [address] [place], [place], [address], [place]. tel:[phone] Referring Provider: [place], [address] . tel:[phone] [facility], [address], [place], [place], [address] , tel: [phone] [facility] No Information 0 Richard. [place], [place], [address], . tel:[phone] OFFICE FMKUU-TOK-PEH KALLI [facility], [address], [place], [place], [address] , tel: [phone] [facility] 6 month (chief complaint) Squamous cell carcinoma of head and neckEssential (primary) hypertensionBody mass index (BMI) 35.0-35.9, adultBenign prostatic hyperplasia, presence of lower urinary tract symptoms unspecified, unspecified morphology 0 0 Richard. [place], [place], [address], . tel:[phone] Referring Provider: Richard Turner [address] [place] [address], [address] . tel:[phone] [facility] [address], [place], [place], [address] , tel: [phone] [facility] Severe back pain 0 - 0 English Ramos. [place], [address], [place]. tel:[phone] [facility] [address], [place], [place], [address] , tel: [phone] [facility] Acute low back pain, unspecified back pain laterality, unspecified whether sciatica present 0 9-201 9 English Ramos. [place], [place], [address], [place]. tel:[phone] Referring Provider: [place], [address] . tel:[phone] PREVENTATIVE- EST: 40-64 [facility] [address], [place], [place], [address] , tel: [phone] [facility] px (chief complaint) Body mass index (BMI) 33.0-33.9, adultEncounter for general adult medical examination without abnormal findingsSquamous cell carcinoma of head and neckBenign prostatic hyperplasia, presence of lower urinary tract symptoms unspecified, unspecified morphologyPain of left lower extremityEssenti al hypertensionVeno us insufficiency English Ramos. [place], [place], [address], [place]. tel:[phone] Referring Provider: Richard Turner, [place], [address] . tel:[phone] [facility] [address], [place], [place], [address] , tel: [phone] [facility] No Information 9 English Ramos. [place], [place], [address], [place]. tel:[phone] [facility] [address], [place], [place], [address] , tel: [phone] [facility] No Information English Ramos. [place], [place], [address], [place]. tel:[phone] [facility] [address], [place], [place], [address] , tel: [phone] [facility] No Information 9 English Ramos. [place], [place], [address], [place]. tel:[phone] [facility] [address], [place], [place], [address] , tel: [phone] [facility] cc (chief complaint) Body mass index (BMI) 33.0-33.9, adultEssential hypertensionObes ity (BMI 30.0-34.9)Squamo us cell carcinoma of head and neck 9 English Ramos. [place], [address], [place]. tel:[phone] Referring Provider: [place], [address] . tel:[phone] [facility] [address], [place], [place], [address] , tel: [phone] [facility] Essential hypertensionScre ening for malignant neoplasm of prostateEncounte r for general adult medical examination without abnormal findings 9 English Ramos. [place], [address], [place]. tel:[phone] [facility] [address], [place], [place], [address] , tel: [phone] [facility] Encounter for general adult medical examination without abnormal findingsCancer of tonsilEssential (primary) hypertensionObes ity (BMI 30.0-34.9)Benign prostatic hyperplasia, presence of lower urinary tract symptoms unspecified, unspecified morphologyLiver cyst 8 English Ramos. [place], [address], [place]. tel:[phone] Referring Provider: [place], [address] . tel:[phone] [facility] [address], [place], [place], [address] , tel: [phone] [facility] Essential (primary) hypertension 8 English Ramos. [place], [place], [address], [place]. tel:[phone] [facility] [address], [place], [place], [address] , [place] tel: [phone] [facility] chronic conditions (chief complaint) Squamous cell carcinoma of head and neckObesity (BMI 30.0-34.9)Essent ial hypertensionBeni gn prostatic hyperplasia, presence of lower urinary tract symptoms unspecified, unspecified morphology 8 English John. [address] [place], [address], [place]. tel:[phone] Referring Provider: [place], [address] . tel:[phone] [facility] [address], [place], [place], [address] , tel: [phone] [facility] Squamous cell carcinoma of head and neckAcneiform drug eruption 8 English John. [address] [place], [place], [address], . tel:[phone] Referring Provider: Richard Turner, [place], [address] . tel:[phone] [employer], [address], [place], [place], [id number] , tel: [phone] Verito No Information Mar- 0-201 7 English Ramos. M[place], [place], [id number], [place]. tel:[phone] Referring Provider: Richard Turner, [place], [address] . tel:[phone] [employer] [address], [place], [place], [address] , tel: [phone] Otis Lump in neck Sep-2 5-201 7 English Ramos. [place], [place], [id number], . tel:[phone] [employer] [address], [place], [place], [address] , tel: [phone] Otis Lump in neck Sep-2 0-201 7 English Ramos. [place], [id number], [place]. tel:[phone] [employer] [address], [place], [place], [address] , tel: [phone] Otis Enlarged lymph node in neck Sep-0 7-201 7 English Ramos. [place], [place], [address], [place]. tel:[phone] Referring Provider: [place], [address] . tel:[phone] [employer] [address], [place], [place], [id number] , tel:[phone] Otis Chronic low back pain, unspecified back pain laterality, with sciatica presence unspecifiedBenig n prostatic hyperplasia, presence of lower urinary tract symptoms unspecified, unspecified morphologyEssent ial hypertensionObes ity (BMI 30.0-34.9) [facility]. [address] [place], [place], [id number], [place]. tel:[phone] Referring Provider: Myesha Barbour, [address] [place] [address], [facility]. tel:[phone] [facility], [address], [place], [place], [address] , [place] tel: [phone] Otis Routine health maintenanceEssen tial hypertensionInso mnia, unspecified typeBenign prostatic hyperplasia, presence of lower urinary tract symptoms unspecified, unspecified morphologyChroni c low back pain, unspecified back pain laterality, with sciatica presence unspecifiedOther chronic painScreening for malignant neoplasm of prostateEncounte r for screening colonoscopyScree agueda for lipoid disorders Km Brunner. [address] [place] [address], [address], . tel:[phone] Referring Provider: Myesha Barbour, [address] [place] [address], [place], [place], [facility]. tel:[phone] Family History Family Member Type Diagnosis Age At Onset Father Problem (finding) Cancer, unknown Brother Problem (finding) Liver disease Sister Problem (finding) migraine Mother Problem (finding) malignant neop lasm of breast in first degree relative Brother Problem (finding) Diabetes mellitus Father Problem (finding) Hearing deficiency Mother Problem (finding) osteoporosis Mother Problem (finding) osteoarthritis Father Problem (finding) hypertension Immunizations Vaccine Date Status Comments Pneumococcal conjugate PCV20 administered Note: VANIA [place] ; Source: Source Unspecified Flublok, Trivalent, preservative free, 18+ yrs, 0.5mL dosage administered Note: VANIA Sheets ; Source: Other Provider Pfizer Comirnaty COVID vaccine, sammie-sucrose, 30mcg/0.3mL dose, 12 years and older administered Note: [facility] ; Source: Source Unspecified Pneumococcal conjugate PCV20 administered Source: New Immunization Record RSV, recombinant, protein subunit RSVpreF, adjuvant reconstituted, 0.5 mL, PF administered Note: [facility] ; So urce: Other Provider Fluzone Quad, preservative free, split virus, 0.5mL dosage administered Note: [facility] ; Source: Source Unspecified Pfizer Comirnaty tri-sucrose COVID Vaccine 30 mcg/0.3 mL dose 12+ years administered Note: [facility] ; Source: Source Unspecified Moderna (Bivalent Booster) COVID Vac, 50mgc/0.5 mL, 18+ years administered Note: wg ; Source: O ther Registry Flublok, quadrivalent, preservative free, 0.5mL dosage administered Note: [facility] ; Source: O ther Registry Pfizer (Diluent Reconstitute d) COVID19 Vaccine, 0.3mL per dose, 2 doses, administered 21 days apart administered Note: [facility] ; Source: Source Unspecified Moderna (Low Dose) COVID19 Vaccine, 0.25mL per dose, booster dose administered Note: Abimael ; Reagan ce: Other Registry Fluzone Quad, preservative free, split virus, 0.5mL dosage administered Note: [facility] ; So urce: Other Registry Tdap administered Source: New Imm unization Record Moderna COVID19 Vaccine, 0.5 mL per dose, 2 doses, administered 28 days apart administered Note: done at [facility] (date is accurate) ; Source: Source Unspecified Moderna COVID19 Vaccine, 0.5 mL per dose, 2 doses, administered 28 days apart administered Note: done at [facility] (date is accurate) ; Source: Source Unspecified Fluzone Quad, preservative free, split virus, 0.5mL dosage administered Note: [facility] ; So urce: Source Unspecified Fluzone Quad, preservative free, split virus, 0.5mL dosage administered Note: [facility] ; So urce: Source Unspecified SHINGRIX (Zoster vaccine recombinant, adjuvanted) administered Note: done at [facility] in [place] (Left arm) ; Source: Other Provider SHINGRIX (Zoster vaccine recombinant, adjuvanted) administered Note: done at [facility] in [place] ; Source: Source Unspecified Flublok, quadrivalent, preservative free, 0.5mL dosage administered Source: New Immuniza tion Record Fluzone Quad [id number], preservative free, split virus, 0.5mL dosage administered Source: New Immuniza tion Record influenza, injectable, quadrivalent, (3 years or older) administered Source: Other Provid er Td (adult) preservative free administered Source: Other Provider Payers Payer name Insurance type Covered alliance party ID Authoriza tion(s) AETNA [facility] [id number] BCBS ACCESS CHOICE BL [id number] BCBS ACCESS CHOICE BL [id number] [employer] CI [id number] Social History Type Description Quantity Date Captured Comments Sex Male Smoking Status No Information Chief Complaint And Reason For Visit No Information Reason For Referral Reason For Referral No Information Plan Of Treatment Date Type Action Status Goal Dietary manageme nt education, guidance, and counseling completed Goal Dietary manageme nt education, guidance, and counseling completed Goal Dietary manageme nt education, guidance, and counseling completed Goal Dietary manageme nt education, guidance, and counseling completed Goal Dietary manageme nt education, guidance, and counseling completed Goal Dietary manageme nt education, guidance, and counseling completed Goal Dietary manageme nt education, guidance, and counseling completed Goal Dietary manageme nt education, guidance, and counseling completed Goal Dietary manageme nt education, guidance, and counseling completed Goal Dietary manageme nt education, guidance, and counseling completed Goal Dietary manageme nt education, guidance, and counseling completed Goal Dietary manageme nt education, guidance, and counseling completed Goal Dietary manageme nt education, guidance, and counseling completed Goal Dietary manageme nt education, guidance, and counseling completed Goal Dietary manageme nt education, guidance, and counseling completed Goal Dietary manageme nt education, guidance, and counseling completed Referral Referred To: [address] [place], [phone] Ordered: Ankle brachial index with exercise ordered Referral Ordered: Jj Gamboa MD -Orthopedic Surgery (related to Left leg pain) ordered Referral Referred To: Jj Gamboa MD [address] [facility] [address] [place], [phone] Ordered: Referrals: Orthopedic Surgery. Jj Gamboa MD. Evaluation/diagnostic/treatment - Level 3 ordered Referral Ordered: Venous duplex scan of extremity Left ordered Referral Referred To: [address] [place] [address], [address] [phone] Ordered: XR tibia and fibula left, 2 views ordered Referral Referred To: Michele Hawk MD [address] [facility] [place] [facility] [address] [place], [phone] Ordered: Referrals: Urology. Michele Hawk MD. Evaluation/diagnostic/treatment - Level 3 ordered Referral Ordered: Spirometry with bronchodilator ordered Referral Referred To: Terrell Bains MD [address] [facility]. [address] [place], [address] [phone] Ordered: Referrals: Pulmonology. Terrell Bains MD. Evaluation/diagnostic/treatment - Level 3 ordered Referral Ordered: MRI of left knee without contrast ordered Referral Referred To: Jj Gamboa MD [address] [facility] [address] [place], [phone] Ordered: Referrals: Orthopedic Surgery. Jj Gamboa MD. Evaluation/diagnostic/treatment - Level 3 ordered Referral Ordered: XR knee left, 4 views ordered Referral Ordered: COLONOSCOPY, Flexible, Proximal To Splenic, Diagnostic, Wor W/O Collection Of Sp ordered Referral Referred To: Brian Luu MD [address] [place] [address], [address] [phone] Ordered: Referrals: Gastroenterology. Brian Luu MD. Evaluation/diagnostic/treatment - Level 3 ordered Referral Referred To: Lauro Rivas MD [address] [facility] [address] [place], [phone] Ordered: Referrals: Neurosurgery. Lauro Rivas MD. Evaluation/diagnostic/treatment - Level 3 ordered Referral Ordered: Myocardial SPECT multiple studies ordered Referral Referred To: [address] [place], [phone] Ordered: X-ray of right hand, AP and lateral views ordered Referral Referred To: [facility] Ordered: Referrals: Pain Medicine. [facility]. Evaluation/diagnostic/treatment - Level 3 Appointment date/timeframe: 06/27/2019 ordered Referral Ordered: MRI, spine, lumbar, without contrast Appointment date/timeframe: 05/24/2019 ordered Referral Ordered: AKI (ankle brachial index) Appointment date/timeframe: 05/16/2019 ordered Appointment Gabriel Rm BOOKED Future Order: Lab Order Calculi, Urinary (Stone) ([id number]), Sent on: Sent Future Order: Lab Order PSA ([id number]), O rdered on: Ordered Future Order: Lab Order Comprehe nsive Metabolic (CMP) ([id number]), Ordered on: Ordered Future Order: Lab Order Testoste miguelangel, Total, Males ([id number]), Ordered on: Ordered Future Order: Lab Order CBC AUTO DIFF ([id number]), Ordered on: Ordered Future Order: Lab Order Lipid Pa abril W/Reflex To Direct LDL ([id number]), Ordered on: Ordered Future Order: Lab Order Lipid Pa abril W/Reflex To Direct LDL ([id number]), Ordered on: Ordered Future Order: Lab Order CBC AUTO DIFF ([id number]), Ordered on: Ordered Future Order: Lab Order Comprehe nsive Metabolic (CMP) ([id number]), Ordered on: Ordered Future Order: Lab Order PSA ([id number]), O rdered on: Ordered History Of Present Illness Encounter Date Complaint History Of Prese nt Illness chronic problems claudication-- still cant walkhtn-- doing well on medcad-- no chest pain on med leg pain Location: left. The pain is burning. Context: there is no injury. Additional information: starts as burning, had this before and ortho thought it was sierra splints, mild pain while resting, wears compression stockings. px Chronic conditio nshtn-- controlled, no symptomshl;d-- controlld on med, binges soemtimesurgency-- doing okdiet-- trying to do betterexercise---- not much, activityimmunizations-- utdscreenings-- utdmood-- oksleep-- better on trazodonememory-- fine left leg pain 68 year old male who presents with left knee to ankle pain for about 2 weeks. Pain is located in anterior left lower leg and in ankle. Pain started when he was throwing bags playing [employer]. Pain has been intermittent since then but is worsening. He has difficulty with standing for long periods. He has pain with rest but is worse with activity. He reports having difficulty with sleeping. He has been taking ibuprofen with no relief. He has tried BioFreeze. He takes Celebrex once to twice daily. He some lower back pain after sitting in a boat but reports this is very mild and not constant. He has no edema to legs, warmth or redness. chronic conditon htn-- controlle d on medhld---controlled on medgerd-- doing okhip pain-- going down leg-- seeing ortho px Chronic conditio nscad-- controlled on medbronchitis-- stopped breztribph--- has tried other meds, daily joycelyn is workinghtn-- controlled on meddiet--goodexercise-- says hes activeimmunizations--utdscreenings--utdmood-- no depressionsleep-- about the samememory-- fine px Chronic conditio nshtn-- controlled onmedhld-- controlled on medshortness of breath-- palnning for repeat pft with pulm, feeling betterdiet-- betterexercise-- not much, but activeimmunizations-- got pneumoniascreenings--utdmood-- crabbysleep-- fine bronchitis PX Chronic conditio nscad-- seen on scans, stress test oksob---chest is also tight, notices himself wheezing Patient encounter Chief complain t: chronic conditions.spinal stenosis-- got surgery, feels greathtn-- controlled on medhld-- controlled on med Knee pain The problem is w orsening. Location: knee. The pain is sharp. Context: there is no injury. The pain is aggravated by bending. Additional information: left knee worse lately, xray showed mild arthritis. px chronic conditio nsspinal stenosis--caludication-- only has to stop for a bithand arthritis-- takes celebrex every dayhtn-- controlled on medhld--- controlled on medlow testosterone--has some ed, fatigued, doesnt sleep muchdietexerciseno risk for drug abusescreeningimmunizationsmoodmemory chronic conditions obesity-- madyson carson is up a bit, cant lose any weighthtn-- ok controlcad-- no chest pain hospital followup 65 year old gumaro odell who presents for hospital followup. He was admitted to [facility] in [place] on 11/16/2020 with left forearm cellulitis and multiple abscesses. Patient had I&D of 7 different regions. He was treated with IV antibiotics. PICC line was placed prior to discharge and he will receive 2 weeks of antibiotics. He will also follow with wound center. He was discharged home on 11/26/2020. He was also started on Diflucan for possible fungal infection. He will see wound center in 2 days and go to infusion center today for PICC line dressing changePatient had lower BP readings in hospital and benicar was held at that timeHis BP is more elevated over the past 3 days. He has been taking Benicar for approximately 5 days now.Home BP readings: 160/80s hosp f/u 65 year old male who presents for hospital followup. He was admitted to [facility] in [place] on 11/16/2020 with left forearm cellulitis and multiple abscesses. Patient had I&D of 7 different regions. He was treated with IV antibiotics. PICC line was placed prior to discharge and he will receive 2 weeks of antibiotics. He will also follow with wound center. He was discharged home on 11/26/2020 Chronic Conditions *See Chronic Conditions HPI preventive exam Men's preventive visit. Patient Health Questionnaire (PHQ-2) is negative. Patient is on a healthy diet. Marital status: . Concern(s)/Requests Detail: Colonoscopy - patient reports UTD and will check at homePSA -DUE NOW. Relevant history is positive for alcohol use. Relevant history is negative for tobacco use. acute visit Associated sympt oms include cough, myalgia and nasal congestion/drainage. Pertinent negatives include nausea, numbness/tingling, photophobia, post-nasal drainage and sore throat.no anosmia wants to discuss cardiac clearance workup INCREASED SOB AND heartburn in chest, do esnt happen when he is doing anything, did have cath in 2002, with jsome bloackage right thumb swelling 65 year old male who presents right thumb pain and swelling for one month. 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 Pain is located in diffuse right thumb and radiates into hand. He has difficulty with extension causing pain. He has no pain with flexion. He has edema that is constant. He had no known injury or trauma. Patient takes celebrex every morning but has not take any other medications. 6 month htn--up a bit, d idnt take a med dailysc cell of throat--- ct scan stable, no symptomsobesity--- weigth is upbph---flomax caused dizziness px chronic conditio nshtn-- bp very good, no chest painneck cancer-- still follow ing up with ent and oncologyobesity-- doing helathy diet and exercisetennis elbow-- both armsbph-- was on flomax, diet-- eating betterexercise-- 5-7 milesscreening-- needs colonoscopyimmunizations-- got flu shot and shinglessleep -- ok cc bph-- flomax mad e him dizzyhnt-- bp ok overallhx of squmoaus cell carcinoma--sees rad onc, med onc, and entobesity--weigth has been up chronic conditions htn-- bp 130/ 60hld- diet controlledobesity-- lost 30 poundscancer---follow up with Vera-on joycelyn Functional Status Date Functional Assessmen t No Information Instructions Date Instruction Additional Infor joyce continue medical management Rela hollie to 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, unspecified vessel or lesion type continue medslow salt diet Relat ed to Essential (primary) hypertension will follow up AKI r esultswould call neurosurgeon Related to Left leg claudication Medication management Dietary management e ducation, guidance, and counseling Related to Body mass index (BMI) 31.0-31.9, adult will get AKI with exercise Relat ed to Left leg claudication Dietary management e ducation, guidance, and counseling Related to Body mass index (BMI) 31.0-31.9, adult Medication management continue medshealthy diet Relate d to Mixed hyperlipidemia continue medslow salt diet Relat ed to Essential (primary) hypertension continue tadafil Related to Urin arnaldo urgency Medication management Urinary Incontinence Dietary management e ducation, guidance, and counseling Related to Body mass index (BMI) 33.0-33.9, adult Fall Risk Prevention We will order venous doppler of left leg todayWe will order xray of left lower legContinue taking tramadol as needed. Do not drive or drink alcohol with his medication Related to Left leg pain continue medswill send to urolog y Related to Urinary urgency continue medshealthy diet Relate d to Mixed hyperlipidemia continue medslow salt diet Relat ed to Essential (primary) hypertension continue medsavoid trigger foods Related to GERD without esophagitis Medication management Dietary management e ducation, guidance, and counseling Related to Body mass index (BMI) 31.0-31.9, adult check on what pneumo olng vaccine you receivedutd with screeningshealthy diet and exercise Related to Annual physical exam call if it returns Related to Br onchitis continue medslow salt diet Relat ed to Essential (primary) hypertension continue medical man agementfollow up with cardio Related to 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, unspecified vessel or lesion type Urinary Incontinence Medication management Dietary management e ducation, guidance, and counseling Related to Body mass index (BMI) 31.0-31.9, adult Fall Risk Prevention utd with screeninghe althy diet and exercisefollow up in 6 months Related to Annual physical exam continue statin Related to Mixed hyperlipidemia follow up with cardiology Relate d to 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, unspecified vessel or lesion type continue medslow salt diet Relat ed to Essential (primary) hypertension follow up with pulm Related to S hortness of breath Fall Risk Prevention Dietary management e ducation, guidance, and counseling Related to Body mass index (BMI) 32.0-32.9, adult Urinary Incontinence Medication management if cp worsens go to erfollow up with cardiology Related to 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, unspecified vessel or lesion type will start breztriwill get PFT R elated to Bronchitis Urinary Incontinence Dietary management e ducation, guidance, and counseling Related to Body mass index (BMI) 32.0-32.9, adult Fall Risk Prevention Medication management continue statin Related to Mixed hyperlipidemia ok to go back to work Related to Spinal stenosis of lumbar region, unspecified whether neurogenic claudication present continue medslow salt diet Relat ed to Essential (primary) hypertension Medication management need to rule out men iscus injurywill get mri and send to ortho Related to Acute pain of left knee Medication management wt loss / heart healthy will send to pig breeder Related t o Body mass index [BMI] 35.0-35.9, adult annual flu shot Related to Annua l physical exam contineu meds Related to Essen tial hypertension continue celebrex Related to Turner d arthritis will start Related to Low t estosterone will get repeat mri Related to S herbie stenosis of lumbar region, unspecified whether neurogenic claudication present Medication management Dietary management e ducation, guidance, and counseling Related to Body mass index (BMI) 35.0-35.9, adult continue medical management Rela hollie to 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, unspecified vessel or lesion type will try saxenda Related to Body mass index (BMI) 35.0-35.9, adult continue medslow salt diet Relat ed to Essential (primary) hypertension Dietary management e ducation, guidance, and counseling Related to Body mass index (BMI) 35.0-35.9, adult Medication management Followup with wound center on ThursdayGo to infusion center today for PICC line dressing changeContinue with antibiotics and antifungal Related to Cellulitis of left forearm MONITOR BLOOD PRESSU RE AT HOME AND CALL US IN 2 WEEKS WITH READINGSContinue to work on increasing exercise such as walking. Continue to limit salt intake. Monitor your home blood pressure. Call our office if blood pressure is consistently over 140/90 Related to Essential (primary) hypertension Dietary management e ducation, guidance, and counseling Related to Body mass index (BMI) 35.0-35.9, adult Continue to work on increasing exercise such as walking. Continue to limit salt intake. Monitor your home blood pressure. 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 If you cannot find these, then call us and we will refer you to GI Related to Encounter for general adult medical examination without abnormal findings Continue medications and avoid foods that trigger symptoms Related to GERD without esophagitis Followup with ENT and radiation Related to Squamous cell carcinoma of head and neck Dietary management e ducation, guidance, and counseling Related to Body mass index (BMI) 34.0-34.9, adult no covid detectedwou ld just treat symptoms with tylenol Related to Body aches Medication management Dietary management e ducation, guidance, and counseling Related to Body mass index (BMI) 36.0-36.9, adult start crestor and 81 mg aspirin dailywill get stress testeat meditteranean diet Related to 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 Do not take Celebrex for the next 3 days. You may resume this on Related to Pain of right thumb continue medslow salt diet Relat ed to Essential (primary) hypertension follow up with oncology Related to Squamous cell carcinoma of head and neck will try cialis jamie yflomax caused dizziness Related to Benign prostatic hyperplasia, presence of lower urinary tract symptoms unspecified, unspecified morphology Medication management Dietary management e ducation, guidance, and counseling Related to Body mass index (BMI) 35.0-35.9, adult bp at goalstopping benicarusing flomax Related to Essential hypertension wear compression stockings Relat ed to Venous insufficiency annual flu shotneeds colonoscopycontinue healthy diet and exercisefollow up in 6 months Related to Encounter for general adult medical examination without abnormal findings follow up with ent and oncology Related to Squamous cell carcinoma of head and neck will check aki Related to Pain of left lower extremity will try flomax again Related to Benign prostatic hyperplasia, presence of lower urinary tract symptoms unspecified, unspecified morphology Medication management Dietary management e ducation, guidance, and counseling Related to Body mass index (BMI) 33.0-33.9, adult reduce calories to under 2000 a day Related to Obesity (BMI 30.0-34.9) stablecontinue to monitor Relate d to Squamous cell carcinoma of head and neck bp cointrolledcontinue low salt diet Related to Essential hypertension Dietary management e ducation, guidance, and counseling Related to Body mass index (BMI) 33.0-33.9, adult Medication management bp at goalwill check kidney func tion Related to Essential hypertension continue flomaxcheck psa Related to Benign prostatic hyperplasia, presence of lower urinary tract symptoms unspecified, unspecified morphology doing greatkeep it up Related to Obesity (BMI 30.0-34.9) contimue oncology follow up Rela hollie to Squamous cell carcinoma of head and neck Medication management Dietary management e ducation, guidance, and counseling Related to Body mass index (BMI) 30.0-30.9, adult Assessments Type Assessment Date No Information Patient Care Teams Name Effective Dates (start - stop) Status Members No Information
[2025-02-16 12:18] VITALS: BMI 30.2
--- NOTE | 2025-02-16 12:41 | PC.NURSE ---
Report to the Outpatient Waiting Room, entrance under the green pavilion located off [facility], at time __10:00AM___ on date ___03/07/25__. Planned Procedure Time: ___12:00PM___.? Time changes happen often and if your time is changed the preop area will call you the afternoon before. - You and your visitor will be asked to self-screen and do not enter if you have any COVID symptoms. Please call surgeon if you need to reschedule. - A mask is optional within the hospital at this time. Patients may have clear liquids (water, carbonated beverages, clear teas, apple juice) until 3 hours prior to surgery (9:00AM) with a maximum of 20 ounces. - No food from midnight until time of surgery and no smoking, or chewing tobacco (or any form of nicotine). No chewing gum, candy or mints. - Take only the following medications with a SIP of water on the morning of surgery: ____NONE DO NOT STOP ANY OF YOUR OTHER PRESCRIPTION MEDICATIONS PRIOR TO SURGERY EXCEPT THE FOLLOWING Hold all vitamins and supplements for 3 days per anesthesiologist. Medications to discontinue per physician HOLD CELEBREX AND IBUPROFEN (ALL NSAIDS) 7 DAY PRE-OP PER DR [place] Date to take last dose 02/27/25 Please no make-up, nail serbian, hairspray, perfume, deodorant, or body powder the day of surgery.? No jewelry (including any body piercings) or valuables the day of surgery, leave them at home.? Please take a shower or bath the night before, or the morning of, surgery with an antibacterial soap.? Wear comfortable, loose fitting clothing.? - Jewelry must be removed prior to entering the operating room.? Rings and piercings that are not removed may be cut off. - The hospital will not accept responsibility for valuables.? - Please leave all valuables, including medications, at home the day of surgery. If you are going home after surgery, a licensed bellman driver must drive you home.? - NO public transportation without another adult if you receive anesthesia. - We recommend that an adult stay with you for 24 hours following discharge. - We also recommend that you do not drive, make important decision, drink alcoholic beverages, or take any drugs that were not prescribed by your health care provider for at least 24 hours after your discharge time. Follow any additional instructions given to you from your surgeon. Telephone instructions given to PATIENT and asked if any additional questions and then verbalized understanding. Patient advised to call surgeon office or pre surgery nurse liaison [phone] if any additional questions.
[2025-03-07] VITALS (9 sets, daily range): BP systolic 129–141; BP diastolic 56–71; PULSE 56–69; RESP 14–16; TEMP 36.3–36.6; O2SAT 96–100; BMI 30.2
--- NOTE | ~2025-03-07 | XR_ITS ---
EXAMINATION: XR fluoroscopy no charge DATE: 03/07/2025 16:01 INDICATION: Left L4-L5 lateral microdiscectomy TECHNIQUE: Single lateral fluoroscopic image of the lower lumbar spine was obtained during procedure performed by Dr. Rivas. Radiologist was not present for the imaging or procedure. The amount of fluoroscopy time used during this procedure was 0.1 minutes. Total DAP was 0.226 Gycm^2. COMPARISON: None. FINDINGS: Soft tissue retractors, lucent gas and a lap sponge markers project over the soft tissues at the operative bed posterior to the lower lumbar spine. There are metallic probe projects along the posterior margin of the posterior elements at L4-L5. IMPRESSION: 1. Fluoroscopy utilized during neurosurgical procedure at the lower lumbar spine. See procedure note for further detail. Reviewed, dictated and finalized at location A. IMPRESSION: 1. Fluoroscopy utilized during neurosurgical procedure at the lower lumbar spin e. See procedure note for further detail.
--- OUTSIDE RECORDS SUMMARY | 2025-03-07 01:46 | XMS_ITS | Clinical Summary ---
Author Organization [facility] Address [address] [place] [address] Phone Care Team Providers Care Butadiene Compressor Operator Name Role Phone Richard Turner MD Primary Care Provider [phone] César Mackey MD Unavailable [phone] Afshin GONZALEZ MD, Raj Whatley Unavailable [phone] Margarita Smallwood MD Unavailable [phone] Allergies No known active allergies Medications olmesartan [...] times a day 90 tablet 5 08/30/2024 02/27/20 25 Active Problems Problem Noted Date Diagnosed Date [...] on file Legal Sex Male 12:59 PM BOOTH CLEANER Gender Identity Not on file Sexual Orientation Not on file 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 Not 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 Not on file Obstetrics History Last Filed Vital Signs Vital Sign Reading Time Taken Comments Blood Pressure 124/60 01/12/2023 1:15 PM CDT Pulse 57 01/12/2023 1:15 PM CDT Temperature 36.8 C (98.2 F) 08/11/2023 12:01 PM BOOTH CLEANER Respiratory Rate 18 08/30/2024 10:27 AM CDT [...] Comments PSA SCREEN Routine 07/05/2012 8:50 AM BOOTH CLEANER from Last 3 Months or Most Recently Relevant to Health Maintenance Results * PSA screen (07/05/2012 8:50 AM BOOTH CLEANER) [facility] Signature PSA Screen 1.5 0.0 - 3.9 ng/mL 07/05/2012 1:30 PM BOOTH CLEANER [facility] HISTORICAL RESULTS Comment: Method: ECLIA Values obtained by different assay methods cannot be used interchangeably. Use sequential testing to confirm baseline if assay method changed during patient monitoring. 07/05/2012 8:50 AM BOOTH CLEANER 07/05/2012 12:39 PM BOOTH CLEANER Alex You MD LAB BLOOD ORDERABLES Final Result Performing Organization Address City/State/[facility] Co de Phone Number [facility] HISTORICAL RESULTS from Last 3 Months or Most Recently Relevant to Health Maintenance Insurance [facility] [place] [address] [facility] MEDICARE ADVANTAGE [employer] MEDICARE GOLD Care Teams Butadiene Compressor Operator Relationship Specialty Start Date End Date Richard Turner MD PCP - General 07/29/17 César Mackey MD Medical Oncologist/Television Announcer Hematology and Oncology 01/19/18 Raj Pepe II, MD Surgeon Otolaryngology 01/21/18 Margarita Smallwood MD Radiation Oncologist Radiation Oncology 01/21/18
--- OUTSIDE RECORDS SUMMARY | 2025-03-07 01:46 | XMS_ITS | Encounter Summary ---
Author Organization [facility] Address [address] [place] [address] Care Team Providers Care Customer Facilities Supervisor Name Role Phone Richard Turner MD Primary Care Provider [phone] Encounter Details Date Type Department Care Team (Late st Contact Info) Description 01/27/2024 [employer] Business Office [address] [place] [id number] [facility] Provider Action Needed Social History Tobacco Use Types Packs/Day Years Used Date Smoking Tobacco: Never Smokeless Tobacco: Never Alcohol Use Standard Drinks/Week Comments Yes 13.3 (1 standard drink = 0.6 oz pure alcohol) socially Humiliation, Afraid, Rape, and Kick questionnair e Answer Date Recorded Within the last year, have y ou been afraid of your partner or ex-partner? No 10/08/2022 Within the last year, have y ou been humiliated or emotionally abused in other ways by your partner or ex-partner? No Within the last year, have y ou been kicked, hit, slapped, or otherwise physically hurt by your partner or ex-partner? No 10/08/2022 Within the last year, have y ou been raped or forced to have any kind of sexual activity by your partner or ex-partner? No 10/08/2022 Social Connection and Isolation Panel [NHANES] A nswer Date Recorded In a typical week, how many times do you talk on the phone with family, friends, or neighbors? Twice a week 05/03/20 23 How often do you get togethe r with friends or relatives? Once a week 10/08/2022 How often do you attend chur or mosque services? Patient declined 10/08/2022 Do you belong to any clubs o r organizations such as muslim groups, unions, fraternal or athletic groups, or school groups? No 10/08/2022 How often do you attend meet ings of the clubs or organizations you belong to? 1 to 4 times per year 10/08/2022 Are you , , di vorced, , never , or living with a partner? 10/08/2022 AUDIT-C Answer Date Recorded Q1: How often do you have a drink containing alc ohol? Monthly or less 10/08/2022 Q2: How many drinks containi ng alcohol do you have on a typical day when you are drinking? 1 or 2 10/08/2022 Q3: How often do you have si x or more drinks on one occasion? Never 10/08/2022 Overall Financial Resource Strain (CARDIA) Answe r Date Recorded How hard is it for you to pa y for the very basics like food, housing, medical care, and heating? Not hard at all 10/08/2022 [facility] of Occupat ional Health - Occupational Stress Questionnaire Answer Date Recorded Do you feel stress - tense, restless, nervous, or anxious, or unable to sleep at night because your mind is troubled all the time - these days? Not at all 10/08/2022 Exercise Vital Sign Answer Date Recorde d On average, how many days pe r week do you engage in moderate to strenuous exercise (like a brisk walk)? 2 days 10/08/2022 On average, how many minutes do you engage in exercise at this level? 30 min 10/08/2022 Hunger Vital Sign Answer Date Recorded Within the past 12 months, y ou worried that your food would run out before you got the money to buy more. Never true 10/09/19 23 Within the past 12 months, t he food you bought just didn't last and you didn't have money to get more. Never true 10/08/2022 PRAPARE - Transportation Answer Date Re corded In the past 12 months, has l ack of transportation kept you from medical appointments or from getting medications? No 08/2022 In the past 12 months, has l ack of transportation kept you from meetings, work, or from getting things needed for daily living? No 10/08/2022 Housing Stability Vital Sign Answer Oneil e Recorded In the last 12 months, was t here a time when you were not able to pay the mortgage or rent on time? No 10/08/2022 In the last 12 months, how many places have you lived? 1 10/08/2022 In the last 12 months, was t here a time when you did not have a steady place to sleep or slept in a nursing home (including now)? No 10/08/2022 Sex and Gender Information Value Date Recorded Sex Assigned at Male 11/11/2024 10:51 AM CDT Legal Sex Male 7:55 PM CDT Gender Identity Not on file Sexual Orientation Not on file documented as of this encounter Functional Status * Are you deaf or do you have serious difficulty hearing Answer Date of Assessment Author Status No 10/08/2022 9:50 PM CDT Kalli Bailey RN Active * Are you blind or do you have serious difficulty seeing, even when wearing glasses? Answer Date of Assessment Author Status No 10/08/2022 9:50 PM KIERRAT Kalli Bailey RN Active * Do you have serious difficulty walking or climbing stairs? Answer Date of Assessment Author Status No 10/08/2022 9:50 PM KIERRAT Kalli Bailey RN Active * Do you have difficulty dressing or bathing? Answer Date of Assessment Author Status No 10/08/2022 9:50 PM KIERRAT Kalli Bailey RN Active * Because of a physical, mental, or emotional condition, do you have difficulty doing errands alone such as visiting a doctor's office or shopping? Answer Date of Assessment Author Status No 10/08/2022 9:50 PM KIERRAT Kalli Bailey RN Active documented as of this encounter Mental Status * Because of a physical, mental, or emotional condition, do you have serious difficulty concentrating, remembering, or making decisions? Answer Entry Date Author Status No 10/08/2022 9:50 PM Kalli Aragon RN Active documented in this encounter Plan of Treatment Not on file documented as of this encounter Goals Goal Patient Goal Type Associated Problems Recent Progress Patient-Stated? Author Health - patient able to perform ADLs independently General No FlZahra petersen, RESIN PAINTER documented as of this encounter Visit Diagnoses Not on filedocumented in this encounter Care Teams Customer Facilities Supervisor Relationship Specialty Start Date End Date Richard Turner MD [address] [place] [id number] PCP - General INTERNAL MEDICINE 05/12/19 documented as of this encounter
--- OUTSIDE RECORDS SUMMARY | 2025-03-07 01:46 | XMS_ITS | Encounter Summary ---
Author Organization [facility] Address [address] [place] [address] Care Team Providers Care Driver Trainee Name Role Phone Richard Turner MD Primary Care Provider [phone] Encounter Details Date Type Department Care Team (Late st Contact Info) Description 11/27/2020 Therapy Plan [facility] [id number] [place], [place] [id number] [place] [id number] [facility] [address] [place] [address] Social History Tobacco Use Types Packs/Day Years Used Date Smoking Tobacco: Never Smokeless Tobacco: Never Alcohol Use Standard Drinks/Week Comments Yes 13.3 (1 standard drink = 0.6 oz pure alcohol) socially Sex and Gender Information Value Date Recorded Sex Assigned at Male 11/11/2024 10:51 AM CDT Legal Sex Male 7:55 PM CDT Gender Identity Not on file Sexual Orientation Not on file COVID-19 Exposure Response Date Recorded In the last month, have you been in contact with someone who was confirmed or suspected to have Coronavirus / COVID-19? No / Unsure 11/30/2020 8:52 AM CDT documented as of this encounter Functional Status * RETIRED Are you deaf or do you have serious difficulty hearing Answer Date of Assessment Author Status No 11/16/2020 11:03 PM CDT Acti ve * RETIRED Are you blind or do you have serious difficulty seeing, even when wearing glasses? Answer Date of Assessment Author Status No 11/16/2020 11:03 PM CDT Acti ve * Do you have serious difficulty walking or climbing stairs? Answer Date of Assessment Author Status No 11/16/2020 11:03 PM CDT Fay Stephens, RN Active * Do you have difficulty dressing or bathing? Answer Date of Assessment Author Status No 11/16/2020 11:03 PM CDT Fay Stephens RN Active * Because of a physical, mental, or emotional condition, do you have difficulty doing errands alone such as visiting a doctor's office or shopping? Answer Date of Assessment Author Status No 11/16/2020 11:03 PM CDT Fay Stephens, RN Active documented as of this encounter Mental Status * Because of a physical, mental, or emotional condition, do you have serious difficulty concentrating, remembering, or making decisions? Answer Entry Date Author Status No 11/16/2020 11:03 PM CDT Fay Stephens, RN Active documented in this encounter Plan of Treatment Not on file documented as of this encounter Goals Goal Patient Goal Type Associated Problems Recent Progress Patient-Stated? Author Health - patient able to perform ADLs independently General No Zahra Boss, HOME HEALTH AIDE documented as of this encounter Visit Diagnoses Not on filedocumented in this encounter Care Teams Driver Trainee Relationship Specialty Start Date End Date Richard Turner MD [address] [place] [phone] PCP - General INTERNAL MEDICINE 05/12/19 documented as of this encounter
--- OUTSIDE RECORDS SUMMARY | 2025-03-07 01:46 | XMS_ITS | Clinical Summary ---
Author Organization [facility] Address [address] [place] [address] Care Team Providers Care Horizontal Resaw Operator Name Role Phone Richard Turner MD Primary Care Provider [phone] Allergies No known active allergies Medications olmesartan 20 MG tablet Take 1 tablet (20 mg total) by mouth daily. Active celecoxib 200 MG capsule Take 1 capsule (200 mg total) by mouth 2 (two) times daily. Active albuterol sulfate HFA 108 (90 Base) MCG/ACT inhaler Inhale 2 puffs into the lungs every 4 (four) hours as needed for Shortness of breath or Wheezing. 8 g 3 Active Additional Information Patient not taking.Reported on 01/26/2023 aspirin EC (ECOTRIN) 81 MG tablet Take 1 tablet (81 mg total) by mouth daily. 30 tablet 3 Active Additional Information Patient not taking.Reported on 08/03/2023 tadalafil (CIALIS) 20 MG tablet Take by mouth daily as needed for Erectile Dysfunction. Active Budeson-Glycopy rrol-Formoterol (BREZTRI AEROSPHERE) 160-9-4.8 MCG/ACT Aerosol Inhale 2 Inhalers into the lungs 2 (two) times a day. Active nitroglycerin (NITROSTAT) 0.[address] 1 tablet (0.4 mg total) under the tongue every 5 (five) minutes as needed for Chest Pain. Maximum of 3 doses. If taking 3rd dose call 911 25 tablet 1 3 Active rosuvastatin (CRESTOR) 10 MG tablet Take 1 tablet (10 mg total) by mouth nightly at bedtime. 4 Active alfuzosin ER (UROXATRAL) 10 MG 24 hr tablet Take 1 tablet (10 mg total) by mouth daily. 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 Benign prostatic hyperplasia 10/24/2015 Chronic low back pain 10/24/2015 Insomnia 10/24/2015 Essential hypertension 10/24/2015 Encounters Date Type Department Care Team Description 01/18/2025 11:05 AM CDT - 01/18/2025 11:59 PM CDT Hospital Encounter [facility] [address] [place] [id number] Jeramy Garcia, DPT Yolis Trinidad NP Low Back Pain Discharge Disposition: Home or Self Care (Routine Discharge) 01/18/2025 Travel 01/11/2025 10:02 AM CDT - 01/11/2025 11:59 PM CDT Hospital Encounter [facility] [address] [place] [address] Yolis Trinidad NP Sackett, Kim, EVELINE Low Back Pain; Lower Extremity Pain (LLE pain) Discharge Disposition: Home or Self Care (Routine Discharge) 01/11/2025 Travel 01/06/2025 3:22 PM CDT - 01/06/2025 11:59 PM CDT Hospital Encounter [facility] [address] [place] [address] Yolis Trinidad NP Bethany Omalley PTA Low Back Pain (LLE pain) Discharge Disposition: Home or Self Care (Routine Discharge) 01/06/2025 1:35 PM CDT - 01/06/2025 3:21 PM CDT Hospital Encounter [facility] [place] [address] [place] [address] Yolis Trinidad NP Discharge Disposition: Home or Self Care (Routine Discharge) 01/06/2025 Travel 01/02/2025 2:41 PM CDT - 01/02/2025 11:59 PM CDT Hospital Encounter [facility] [address] [place] [address] Jeramy Garcia, DPT Yolis Trinidad NP Low Back Pain Discharge Disposition: Home or Self Care (Routine Discharge) 01/02/2025 Travel from Last 3 Months Immunizations Immunization Administration Dates Next Due MODERNA COVID-19 (12+) MRNA, LNP-S, PF, 100 MCG/ 0.5 ML DOSE 03/29/2021,08/16/2020,07/19/2020 PFIZER COVID-19 (ORIGINAL FO RMULATION, PURPLE CAP) mRNA, LNP-S, PF, 30 MCG/0.3 ML DOSE 10/15/2021 Family History Medical History Relation Comments Diabetes Brother Cancer Father Hypertension Father Cancer Mother Hypertension Mother Relation Status Comments Brother Father Mother Social History Tobacco Use Types Packs/Day Years [...] family, friends, or neighbors? Twice a week 10/09/19 How often do you get togethe r with friends or relatives? Once a week 10/08/2022 How often do you attend chur or restorationism services? Patient declined 10/08/2022 Do you belong to any clubs o r organizations such as latter-day groups, unions, fraternal or athletic groups, or [...] and heating? Not hard at all 10/08/2022 [facility] Questionnaire Answer Date [...] place to sleep or slept in a senior care (including now)? No 10/08/2022 Sex and Gender Information Value Date Recorded Sex Assigned at Male 11/11/2024 10:51 AM CDT Legal Sex Male 7:55 PM CDT Gender Identity Not on file Sexual Orientation Not on file Last Filed Vital Signs Vital Sign Reading Time Taken Comments Blood Pressure 144/80 11/02/2024 1:22 PM CDT Pulse 60 11/02/2024 1:22 PM CDT Temperature 37 C (98.6 F) 11/02/2024 1:22 PM CDT Respiratory Rate 18 11/02/2024 1:22 PM CDT Oxygen Saturation 94% 11/02/2024 1:22 PM CDT Inhaled Oxygen Concentration - - Weight 112 kg (247 lb) 11/02/2024 11:03 AM CDT Height 182.9 cm (6') 11/02/2024 11:03 AM CDT Body Mass Index 33.5 11/02/2024 11:03 AM CDT Plan of Treatment Health Maintenance Due Date Last Done Comments ASCVD Statin 1957 Hepatitis C 1975 RSV Immunization or 60+ Years (1 - Risk 60-74 years 1-dose series) 2017 Annual Medicare Wellness Visit 2022 COVID-19 Vaccine ( season) 2025 02/29/2024, 02/28/2022, 10/15/2021, Additional history exists DTaP, Tdap and Td Vaccines (2 - Td or Tdap) 12/26/2030 12/26/2020 Colorectal Cancer Screening Colonoscopy (10 Years) 01/07/2032 01/06/2022, 01/06/2022, 01/06/2022 Zoster Vaccines Completed 01/11/2019, 10/07, 09/23/2018 Pneumococcal Vaccine: 50+ Years Completed 02/29/2024, 01/12/2024 Meningococcal B Vaccine Aged Out No l onger eligible based on patient's age to complete this topic Meningococcal Vaccine Aged Out No oneil hill eligible based on patient's age to complete this topic RSV Immunizations Under 20 Months Aged Out No longer eligible based on patient's age to complete this topic Goals Goal Patient Goal Type Associated Problems Recent Progress Patient-Stated? Author Health - patient able to perform ADLs independently General No Zahra Boss, MACHINE OPERATOR PICKER Medical Devices Implanted Type Area Center Manager Device Identifier Shelf Expiration Date Model / Serial / Lot Hip Procedures Procedure Name Priority Date/Time Associated Diagnosis Comments MRI LUMB SPINE WO CON Routine 01/06/2025 2:19 PM CDT Other specified postprocedural states Other symptoms and signs involving the musculoskeletal system COLONOSCOPY Routine 01/06/2022 12:29 PM CDT from Last 3 Months or Most Recently Relevant to Health Maintenance Results * MRI LUMB SPINE WO CON (01/06/2025 2:19 PM CDT) Anatomical Region Laterality Modality Spine Magnetic Resonan ce 01/15/2025 11:2 5 AM CDT Impressions 01/15/2025 11:31 AM CDT IMPRESSION: 1) Postoperative changes at L3-4 and L4-5 levels. 2. L3-4 shows different than before prominent right paracentral and posterolateral protrusion compromising the right neural foramen. At this level there is also stenosis of the central canal with hypertrophy of the facets and ligaments. 3. L4-5 also shows postoperative findings. Different than before there is at least moderate left paracentral and posterolateral protrusion as described compromising the left neural foramen and the left lateral recess.. 4. L2-3 shows also degenerative changes with diffuse bulge and narrowing of the neural foramen as described. Mild stenosis of the central canal. Ordered By: YOLIS TRINIDAD Interpreted By: Yousif Vidal MD, 01/15/2025 11:25 AM Narrative 01/15/2025 11:31 AM CDT [facility] [address] [place] [address] Examination: MRI LUMB SPINE WO CON Exam time: 01/06/2025 1:40 PM Clinical history: Patient has left-sided low back pain radiating down to the leg. Comparison: Performed in 2019. Technique: Imaging routine without contrast. Findings: L5 vertebra appears transitional. The height of the lumbar vertebra is well maintained. There is minimal scoliosis. There are postoperative changes at the level L3-4 and L4-5 consistent with laminectomies. In the lower thoracic segments no significant disc lesions. Borderline size of the neural foramen at T12-L1. L1-L2: Mild degenerative changes with mild hypertrophy of the facets. Borderline size of the central canal. Mild narrowing of the neural foramen. L2-3: There is voce-nj-miqbekwz facet disease with fluid in the facets and thickening of the ligaments. There is diffuse disc bulge of vbmd-rm-idlpctvr degree and right posterolateral small disc protrusion compromising partially the right neural foramen of moderate degree. Mild narrowing of the left neural foramen. Mild narrowing of the central canal and the lateral recesses worse on the right. L3-4: Postoperative changes of laminectomy. There is marked hypertrophy of the facets and ligaments which has progressed and before compromising the lateral recesses and narrowing the central canal especially decreased transverse dimension. Compromise of the right lateral recesses worse. This is best seen on axial images numbered 27 and 28. At this level there is diffuse moderate disc bulge and broad-based disc protrusion worse along the right posterolateral aspect of the interspace with moderate to severe narrowing of the right neural foramen. This is best seen on sagittal images #6 there is 8 and on the axial images numbered 25 there is 27. Moderate narrowing of the left neural foramen. L4-5: Postoperative changes of prior laminectomy. Moderate facet disease. There is diffuse disc bulge of moderate degree. At this level there is moderate diffuse left paracentral and posterolateral protrusion which is best seen on sagittal images numbered 10 there is 14 which compromises the left neural foramen of moderate to severe degree. There is also at least moderate narrowing of the right neural foramen. Moderate stenosis of the central canal and narrowing of the left lateral recesses worse on the left. L5/S1: There is mild to moderate facet disease. No significant disc lesions. Borderline size of the neural foramen and the central canal. Within the dural sac no abnormal signal. The distal spinal cord unremarkable. Visualized paraspinal soft tissues show no acute findings. Procedure Note Yousif Vidal MD - 01/15/2025 [facility] [address] [place] [address] Examination: MRI LUMB SPINE WO CON Exam time: 01/06/2025 1:40 PM Clinical history: Patient has left-sided low back pain radiating down tothe leg. Comparison: Performed in 2019. Technique: Imaging routine without contrast. Findings: L5 vertebra appears transitional. The height of the lumbar vertebra is well maintained. There is minimalscoliosis. There are postoperative changes at the level L3-4 and L4-5 consistent withlaminectomies. In the lower thoracic segments no significant disc lesions. Borderlinesize of the neural foramen at T12-L1. L1-L2: Mild degenerative changes with mild hypertrophy of the facets.Borderline size of the central canal. Mild narrowing of the neuralforamen. L2-3: There is ckaf-fa-yboxpqcz facet disease with fluid in the facets andthickening of the ligaments. There is diffuse disc bulge knuwmk-am-fjybamhr degree and right posterolateral small disc protrusioncompromising partially the right neural foramen of moderate degree. Mildnarrowing of the left neural foramen. Mild narrowing of the central [place] the lateral recesses worse on the right. L3-4: Postoperative changes of laminectomy. There is marked hypertrophy ofthe facets and ligaments which has progressed and before compromising thelateral recesses and narrowing the central canal especially decreasedtransverse dimension. Compromise of the right lateral recesses worse. Thisis best seen on axial images numbered 27 and 28. At this level there isdiffuse moderate disc bulge and broad-based disc protrusion worse alongthe right posterolateral aspect of the interspace with moderate to severenarrowing of the right neural foramen. This is best seen on sagittalimages #6 there is 8 and on the axial images numbered 25 there is 27.Moderate narrowing of the left neural foramen. L4-5: Postoperative changes of prior laminectomy. Moderate facet disease.There is diffuse disc bulge of moderate degree. At this level there ismoderate diffuse left paracentral and posterolateral protrusion which isbest seen on sagittal images numbered 10 there is 14 which compromises theleft neural foramen of moderate to severe degree. There is also at leastmoderate narrowing of the right neural foramen. Moderate stenosis of thecentral canal and narrowing of the left lateral recesses worse on theleft. L5/S1: There is mild to moderate facet disease. No significant disclesions. Borderline size of the neural foramen and the central canal. Within the dural sac no abnormal signal. The distal spinal cordunremarkable. Visualized paraspinal soft tissues show no acute findings. IMPRESSION: 1) Postoperative changes at L3-4 and L4-5 levels. 2. L3-4 shows different than before prominent right paracentral andposterolateral protrusion compromising the right neural foramen. At thislevel there is also stenosis of the central canal with hypertrophy of thefacets and ligaments. 3. L4-5 also shows postoperative findings. Different than before there isat least moderate left paracentral and posterolateral protrusion asdescribed compromising the left neural foramen and the left lateralrecess.. 4. L2-3 shows also degenerative changes with diffuse bulge and narrowingof the neural foramen as described. Mild stenosis of the central canal. Ordered By: YOLIS TRINIDAD Interpreted By: Yousif Vidal MD, 01/15/2025 11:25 AM us Yolis Trinidad TECHNICAL SOLUTIONS DIRECTOR MRI Final Result * Colonoscopy (01/06/2022 11:45 AM CDT) Narrative Procedure Note Lloyd Quispe MD - 01/06/2022 11:45 AM CDT LLOYD QUISPE MD, FACG, FACP COLONOSCOPY 01/06/2022 This is a 66-year-old male with history of HTN, right THR and throatcancer s/p XRT who now presents for colonoscopy for screening for coloncancer. GI review of systems is negative. No endocarditis risk factors. No KnownAllergies Medications: see list. Family history: negative for colon cancer. VITALS: Stable. LUNGS: Clear. HEART: RRR S1/S2 normal. ABDOMEN: NABS/NT. The procedure of colonoscopy, its indications, alternatives of bariumstudies and risks including perforation, bleeding, infection, reaction tomedication as well as the possible need for blood or surgery werediscussed with the patient prior to the procedure. The patient voicesunderstanding, agrees to proceed and provides informed consent. INDICATION: Screening for colon cancer. POST-OP: Normal. SEDATION: Per Anesthesia PREP: Good. With the patient in the left lateral decubitus position, the [id number] colonoscope was introduced into the rectum and advanced easilyto the Terminal Ileum. Careful inspection of the mucosa was made uponinsertion and withdrawal of the endoscope. FINDINGS: Terminal ileum: distal 5 cm normal. Cecum, Ascending colon, Transversecolon, Descending colon, Sigmoid colon and Rectum including retroflexionnormal. No masses, polyps, AVMs, colitis or diverticulosis seen. No complications, blood loss or implants. ASSESSMENT AND PLAN: Unremarkable colonoscopy: screening colonoscopy in 10 years. Thank you for allowing me to care for your patient. He will follow-up withDr. Turner as needed. Lloyd Quispe M.D. Cc: Dr. Grabiel Turner Lloyd Quispe MD GI PROCEDURE ORDERABLES Fin al Result from Last 3 Months or Most Recently Relevant to Health Maintenance Insurance [employer] Advance Directives * Full Code (Latest Code Status on File) Date Activated Date Inactivated Comments 10/09/2022 9:12 AM 10/10/2022 4:22 PM * Full Code Date Activated Date Inactivated Comments 11/18/2020 3:04 PM 11/26/2020 8:17 PM Care Teams Horizontal Resaw Operator Relationship Specialty Start Date End Date Richard Turner MD [address] [place] [id number] PCP - General INTERNAL MEDICINE 05/12/19
--- OUTSIDE RECORDS SUMMARY | 2025-03-07 01:46 | XMS_ITS ---
Author Organization [facility] Address [facility]ly [facility] [place] [address] Care Team Providers Care Production Supervisor Trainee Name Role Phone Richard Turner MD Primary Care Provider [phone] Active Problems Problem Noted Date Diagnosed Date Chest pain 10/08/2022 Primary osteoarthritis of left knee 11/20/2021 History of therapeutic radiation 12/12/2020 Cellulitis of left hand excluding fingers and th umb 11/27/2020 Abscess of right arm 11/25/2020 Cellulitis 11/16/2020 SOB (shortness of breath) 05/23/2020 CAD (coronary artery disease) 05/23/2020 Benign essential HTN 05/23/2020 Sensorineural hearing loss (SNHL) of both ears 0 12/27/2019 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 Past Treatment and Therapy Plans
--- OUTSIDE RECORDS SUMMARY | 2025-03-07 01:46 | XMS_ITS | Patient Health Record ---
Author Organization [facility] Address [address] [place] [address] Care Team Providers Care Hotel Housekeeper Name Role Phone Anil Smith Primary Care Provider [phone] Reason For Referral No Information Immunizations Vaccine Route Administration Date Status Comme nts COVID-19 Moderna 2nd IM Intramuscular 08/16/2020 Administered EUA date 0. Screening reviewed and consent signed. Patient tolerated well. COVID-19 Moderna 1ST IM Intramuscular 07/19/2020 Administered EUA date 0. Screening reviewed and consent signed. Patient tolerated well. Plan Of Treatment No Information Insurance Providers Payer Name Payer Address Payer Phone Subscriber Number Group Number Insured Name Patient Relationship to Insured Coverage Start Date Coverage End Date [facility] [address] [place] [address] [phone] [id number] Garbiel Rm Self - patient is the insured 1
--- OUTSIDE RECORDS SUMMARY | 2025-03-07 01:46 | XMS_ITS | Encounter Summary ---
Author Organization [facility] Address [facility] [place] [address] Care Team Providers Care Horseradish Grinder Name Role Phone Richard Turner MD Primary Care Provider [phone] Encounter Details Date Type Department Care Team (Late st Contact Info) Description 03/16/2024 [employer] [facility] Patient Accounts [address] [place] [address] [facility] Provider Action Required Social History Tobacco Use Types Packs/Day Years [...] friends, or neighbors? Twice a week 10/09/19 23 How often do you get togethe r with friends or relatives? Once a week 10/08/2022 How often do you attend chur ch or jew services? Patient declined 10/08/2022 Do you belong to any clubs o r organizations such as roman catholic groups, unions, fraternal or athletic groups, or [...] and heating? Not hard at all 10/08/2022 [facility] - Occupational Stress [...] place to sleep or slept in a mcc (including now)? No 10/08/2022 Sex and Gender [...] PM KIERRAT Kalli Bailey RN Active * Are you [...] Assessment Author Status No 10/08/2022 9:50 PM Kalli Aragon RN Active documented as of this encounter [...] perform ADLs independently General No Zahra Boss, ORTHOPEDIC SHOE FITTER documented as of this encounter Visit Diagnoses Not on filedocumented in this encounter Care Teams Horseradish Grinder Relationship Specialty Start Date End Date Richard Turner MD [address] [place] [address] PCP - General INTERNAL MEDICINE 05/12/19 documented as of this encounter
--- NOTE | 2025-03-07 08:02 | P.HP_ITS ---
H&P: [facility] History of Present Illness Date/Time: 03/07/25 08:02 Chief Complaint: Back and leg pain Narrative: Gabriel presents with left lower extremity pain. This has been going on for about a year but more severely over time and is now also stated with left dorsiflexion weakness. His pain is worse with activity and better with rest. If he is very active than he develops more discomfort and is more limited. He notices that his foot flops as he walks. This has been present for a few months. He does not report bowel or bladder difficulty or other constitutional problems. The pain is severe and limiting for him on a daily basis and especially with any significant activity. He is eager to definitively manage the problem and, as mentioned, has significant weakness of left dorsiflexion. Review of Systems Review of Systems: All systems reviewed & are unremarkable except as noted in HPI and below Denies chills, Denies fever, Denies weight gain and Denies weight loss Eyes Denies change in vision and Denies diplopia ENT Denies disequilibrium Card Denies chest pain and Denies dyspnea Resp Denies cough and Denies dyspnea GI Denies abdominal pain, Denies change in bowel habits, Denies fecal incontinence and Denies vomiting Denies hematuria, Denies oliguria, Denies difficulty urinating, Denies dysuria, Denies urinary frequency, Denies urinary hesitancy, Denies urinary incontinence and Denies urinary urgency Musc Reports as per HPI Skin/ Breast Reports system reviewed and no additional complaints, except as documented Neuro Reports as per HPI Psych Reports no additional complaints, Denies depression and Denies hopelessness Endo Reports no additional complaints and Denies polyuria Mike/ Lymph Reports no additional complaints Aller/ Immun Reports no additional complaints PMFSH Past Medical History Medical History Enlarged prostate Chronic pain syndrome Hypercholesteremia Hypertension Acute arthritis Surgical History Surgical History History of lumbosacral spine surgery 2019 History of right hip replacement 1999 Hx of tonsillectomy H/O vasectomy Family History Family History Father Bladder cancer Mother No problems noted. Sibling No problems noted. Other Breast cancer Diabetes mellitus Heart disease Hypertension Social History Social History Smoking status: Never smoker Second hand tobacco smoke exposure: Yes Alcohol intake: current Drinks per week: 6 Alcohol use details: 8/MONTH Substance use: never Substance use type: does not use Do You Feel Safe in your Home?: Yes Lack of Transportation: No Lack of Food: Never True Current Housing: I Have Housing Concerned About Future Housing: No Difficulty Paying Gas/Electric Bills: No Difficulty Paying for Meds: No Currently Unemployed: No Education: High School Diploma/GED Difficulty w/ Childcare or Family Care: No Living arrangements: with family Additional living arrangements comments: Occupation/Education: retired Additional occupation/education comments: [employer] Gender identity (if verbalized by the patient): Male Sexual Orientation (if Verbalized by the Patient): Straight or Heterosexual Spiritual care concerns: No Meds Home Medications and Allergies Home Medications ?Medication ?Instructions ?Recorded ?Confirmed ?Type celecoxib 200 mg capsule (Celebrex) 200 mg PO BID PRN pain 12/30/21 02/16/25 History olmesartan 20 mg tablet (Benicar) 20 mg PO DAILY 12/3002/16/25 History rosuvastatin 10 mg tablet (Crestor) 10 mg PO DAILY 02/16/25 History solifenacin 5 mg tablet 5 mg PO HS 12/14/24 02/16/25 History tadalafil 5 mg tablet 5 mg PO DAILY 12/14/2402/16 History trazodone 50 mg tablet 50 mg PO HS 12/14/24 5 History ibuprofen 800 mg tablet (IBU) 800 mg PO TID PRN pain 0 02/16/25 02/16/25 History Allergies Allergy/AdvReac Type Severity Reaction Status Date / Time No Known Allergies Allergy Verified 02/16/25 12:11 Exam Narrative: Exam Exam Const General: cooperative, no acute distress, well developed, alert and awake Orientation/Consciousness: oriented to person, oriented to place and oriented to time Constitutional Limitations: no limitations Other: The patient is a normally developed, normal appearing male sitting on the examination table in no acute distress. He is awake, alert, and oriented x3 with good fund of knowledge, recall of events, and fluent speech. [facility] Head: normocephalic and atraumatic Ears: external ears normal Face/Nose/Sinus: Normal external nose present Eyes Eyelids: eyelids normal Pupils: Yes Pupils normal by confrontation EOM: EOMs intact bilaterally Neck General: Yes no meningeal signs, Yes supple and Yes no JVD Resp Effort/Inspection: normal respiratory effort and able to speak in complete sentences Cardio Rate: Yes regular rate GI Inspection: No abdominal distension Musc Other: Examination of the back reveals no tenderness. Range of motion of the back is full without pain in forward flexion, extension, and lateral rotation to both sides. Straight leg raise is negative bilaterally. Kota?s test is negative bilaterally. Skin General: normal color Neuro General: Yes oriented to person, Yes oriented to place, Yes oriented to time, Yes normal cognition and Yes no meningeal signs Cranial Nerves: Yes CN's II-XII intact bilaterally Other: Motor: S There is left dorsiflexion weakness being 4/5. Otherwise there is normal and symmetric strength in the bilateral lower extremities. Sensory: Sensation is intact to light touch throughout the upper and lower extremities bilaterally. There may be some subjective numbness distally in the left leg. Reflexes: Deep tendon reflexes are difficult to elicit the knees or ankles bilaterally. There is no clonus. Gait: Gait, station, and transfers are independent and steady for short periods of time and over short distances. Psych Appearance: grossly normal Mental status: Yes mental status grossly normal Mood: congruent mood Affect: Yes normal affect Speech/Movement: Normal speech and movement present Attitude: Yes cooperative Thought Content: Normal thought content present Review of studies: MRI of the lumbar spine was personally reviewed by me and demonstrates a L4-5 foraminal disc herniation on the left which is severely compresses the exiting L4 nerve root. There is spondylosis and postoperative changes at L3-5. There is right-sided foraminal stenosis at L3-4. Assessment and Plan Assessment and plan (1) Lumbar stenosis: Code(s): M48.061 - Spinal stenosis, lumbar region without neurogenic claudication Status: Acute (2) Lumbar spondylosis: Code(s): M47.816 - Spondylosis without myelopathy or radiculopathy, lumbar region Status: Acute (3) Lumbar disc herniation: Code(s): M51.26 - Other intervertebral disc displacement, lumbar region Status: Acute Plan Gabriel is a 69-year-old gentleman with a left L4 radiculopathy, most likely. This is related to the severe foraminal stenosis caused by disc herniation foramen on the right at L4-5. I have recommended him far lateral foraminotomy and microdiskectomy, for going fusion for the time being. Described to him that operation, its risks, potential benefits, the operative and postoperative course in detail and answered all his questions personally. We discussed risks incl uding but not limited to permanent neurologic deficit secondary to nerve root injury, need for reoperation secondary to infection, bleeding, CSF leak, adjacent level disease, recurrent residual pathology or instability, failure of the procedure to relieve his pain or symptoms, persistent pain, medical complications related to anesthesia or surgery, etc.. He indicates understanding and elects to proceed with that operation.
--- NOTE | 2025-03-07 08:04 | WPDHPUPDATE1 ---
History and Physical Update Update Date/Time: 03/07/25 08:04 History and Physical has been reviewed, including an updated exam of the patient. There are NO changes in the patient's condition. Risks, benefits, and alternatives have been discussed and questions answered. Patient agrees to proceed with procedure.
[2025-03-07] MEDS: LACTATED RINGERS 1,000 ML 30 ML IV CONT ×3 (10:30→15:48)
--- NOTE | 2025-03-07 12:09 | P.PNAN_ITS ---
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 Patient Data Age: 69 Gender: M Height: 1.83 m Weight: 100.9 kg Last Vital Signs Temp 97.9 F 03/07/25 10:44 Pulse 69 03/07/25 10:44 Resp 16 03/07/25 10:44 BP 129/62 03/07/25 10:44 Pulse Ox 97 03/07/25 10:44 O2 Del Method Room Air 03/07/25 10:44 Allergies Allergy/AdvReac Type Severity Reaction Status Date / Time No Known Allergies Allergy Verified 03/07/25 10:36 Home Medications ?Medication ?Instructions ?Recorded ?Confirmed ?Type celecoxib 200 mg capsule (Celebrex) 200 mg PO BID PRN pain 12/30/21 03/07/25 History olmesartan 20 mg tablet (Benicar) 20 mg PO DAILY 12/3003/07/25 History rosuvastatin 10 mg tablet (Crestor) 10 mg PO DAILY 02/16/25 History solifenacin 5 mg tablet 5 mg PO HS 12/14/24 02/16/25 History tadalafil 5 mg tablet 5 mg PO DAILY 12/14/2402/16 History trazodone 50 mg tablet 50 mg PO HS 12/14/24 5 History ibuprofen 800 mg tablet (IBU) 800 mg PO TID PRN pain 0 02/16/25 03/07/25 History Patient hx anesthesia problems: none Family hx anesthesia problems: none Results Review: All pre-operative results and documents have been reviewed as part of the pre- operative evaluation. [facility] Past Medical History Medical History Enlarged prostate Chronic pain syndrome Hypercholesteremia Hypertension Acute arthritis Surgical History Surgical History History of lumbosacral spine surgery 2019 History of right hip replacement 1999 Hx of tonsillectomy H/O vasectomy Family History Family History Father Bladder cancer Mother No problems noted. Sibling No problems noted. Other Breast cancer Diabetes mellitus Heart disease Hypertension Social History Social History Smoking status: Never smoker Second hand tobacco smoke exposure: Yes Alcohol intake: current Drinks per week: 6 Alcohol use details: 8/MONTH Substance use: never Substance use type: does not use Do You Feel Safe in your Home?: Yes Lack of Transportation: No Lack of Food: Never True Current Housing: I Have Housing Concerned About Future Housing: No Difficulty Paying Gas/Electric Bills: No Difficulty Paying for Meds: No Currently Unemployed: No Education: High School Diploma/GED Difficulty w/ Childcare or Family Care: No Living arrangements: with family Additional living arrangements comments: Occupation/Education: retired Additional occupation/education comments: [employer] [place] [employer] Gender identity (if verbalized by the patient): Male Sexual Orientation (if Verbalized by the Patient): Straight or Heterosexual Spiritual care concerns: No Anes - Eval Final PreProcedure Day of Procedure 03/07/25 12:09 Patient weight: obese Lungs: normal air movement Airway: Mallampati scale class II and special considerations (Prev radiation to L neck noted. ) Neurological: alert and oriented Last oral intake: >/= 8 hours ASA classification: III Emergent: no Anesthetic plan: proceed Anesthesia type and monitoring: general ETT and standard monitoring Results Review: All pre-operative results and documents have been reviewed as part of the pre- operative evaluation. HTN, hyperlipidemia, BMI 30, hx of ca of throat/HPV, s/p surgery/radiation/chemo approx 2017. Pt has reported longstanding LBBB, reports stress test by band machine operator approx 2 020 which has been normal. Informed Consent: The patient's anesthetic plan and its attendant risks and benefits were discussed with the patient/family/POA. Questions were solicited and answers provided to the satisfaction of the patient/family/POA.
[2025-03-07] MEDS: ceFAZolin 2 GM in SODIUM CHLORIDE 0.9% IV 50 ML 100 ML IVPB (14:12)
[2025-03-07] MEDS: LIDO 1%/EPINEPHRINE 1:100,000 20 ML VIAL 10 ML INFILTRATE (15:03)
--- NOTE | 2025-03-07 15:48 | W.PM.PROC2 ---
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 He was then turned into the prone position on a Toy frame. There operation on the back was examined, marked for incision, prepped and draped in routine sterile fashion. Incision was marked over the L4-L5 area in the midline. This area was injected with 0.5% lidocaine with [id number] epinephrine. Intravenous antibiotics given prior to incision. Incision was made with a 10 blade scalpel. Bovie cautery was used to come to the soft tissues until the lateral mass was identified on the left side. There had been previous laminectomy at L4-5. A verifying x-rays obtained to verify the level of operation. A Vargas retractor was placed. Under microscopy a Midas Diomedes drill was used to perform a lateral resection of pars and facet to the soft contents the foramen were encountered. The yellow ligament was identified and removed piecemeal using Kerrison punches. The nerve root was identified and reflected superiorly. The ligament was entered using an 11 blade scalpel. An Triston curette, curved curette and Mills rongeur were used to push free and removed fragments of hard and soft disc from beneath the nerve. These maneuvers were performed to a nerve hook could be placed proximally distally to confirm lack of compression. Wound was copiously bacitracin irrigation all bleeding stopped bipolar Bovie cautery and Gelfoam thrombin powder. The wound was then closed in layered fashion with 2-0 Vicryl interrupted sutures in the lumbodorsal fascia and Stan's layer. 3-0 Vicryl buried interrupted sutures were placed in the dermis and skin was closed with a running 4-0 Monocryl subcuticular stitch and dressed with Dermabond. The patient's blood taken to the recovery room in stable condition. There were no immediate complications of this operation. All counts reported correct at the end of the case. Blood loss was 25 cc. The patient was neurologically at his baseline postoperatively. CPT codes: 10566, 12042 Estimated Blood Loss 25 Complications None Condition Stable Disposition PACU [facility] Billing Surgery - Charge Forward: Surgery Billing
[2025-03-07] MEDS: fentaNYL CITRATE INJ (*CRX) 100 MCG/2 ML VIAL 25 MCG IV PUSH ×4 (16:10→16:23)
[2025-03-07] MEDS: oxyCODONE HCL (*CRX) 5 MG TAB IR PO (16:57)
== END 2025-03-07 18:00 | disposition home or self-care (01) ==
PROVIDERS: PCP Internal Medicine; Visit Provider Neurological Surgery
PROC: (CPT 63030; principal; 2025-03-07 12:00)
DX: M48.061 Spinal stenosis, lumbar region without neurogenic claudication (principal); M47.816 Spondylosis without myelopathy or radiculopathy, lumbar region; M51.26 Other intervertebral disc displacement, lumbar region; G89.4 Chronic pain syndrome; I10 Essential (primary) hypertension; E78.00 Pure hypercholesterolemia, unspecified; N40.0 Benign prostatic hyperplasia without lower urinary tract symptoms; M19.90 Unspecified osteoarthritis, unspecified site; E66.9 Obesity, unspecified; Z68.30 Body mass index [BMI] 30.0-30.9, adult; Z79.1 Long term (current) use of non-steroidal anti-inflammatories (NSAID); Z98.890 Other specified postprocedural states; Z98.1 Arthrodesis status; Z85.21 Personal history of malignant neoplasm of larynx; Z92.3 Personal history of irradiation; Z92.21 Personal history of antineoplastic chemotherapy; Z80.52 Family history of malignant neoplasm of bladder; Z80.3 Family history of malignant neoplasm of breast; Z82.49 Family history of ischemic heart disease and other diseases of the circulatory system
CPT/HCPCS: 63056; 99199; J0690; A9270; J1100; J2004; J2405; J2704; J3010; J7120